=== PATIENT | male | born 1935 | race Caucasian/White ===

== ENCOUNTER 2017-01-24 09:21 | Emergency (ER) | payer OTHER, MEDICARE ==
[~2017-01-24] VITALS: Ht 175.3 cm; Wt 113.4 kg
[~2017-01-24 09:21] MED LIST: ADVAIR DISKUS 21 DSK INH; ASPIR 8181 MG PO; ATORVASTATIN CA40 MG PO; CEFTIN 250 #201 PAC PO; MUCINEX600 MG PO; PREDNISONE 10MG10 M1 PO; PRINIVIL 5MG5 MG PO; Senokot S PO; VENTOLIN H0.09 MG/Ac INH
--- NOTE | 2017-01-24 10:06 | ED GI/GU/ABDOMINAL COMPLAINT ---
History of Present Illness General Chief Complaint: General Adult Stated Complaint: LUMP ON LEFT SIDE Source: patient Exam Limitations: no limitations Vital Signs & Intake/Output Vital Signs & Intake/Output Vital Signs Date Time Temp Pulse Resp B/P B/P Pulse O2 O2 Flow FiO2 Mean Ox Delivery Rate 01/24 1036 97.0 78 16 117/79 98 Room Air 01/24 0934 97.1 83 15 121/71 95 Room Air Room Air Allergies Coded Allergies: No Known Allergies (01/24/17) Reconcile Medications Albuterol Sulfate (Proair Hfa) 90 MCG HFA.AER.AD 2 PUF INH Q4-6 PRN PRN SHORTNESS OF BREATH (Reported) Aspirin (Ecotrin*) 81 MG TABLET.DR 1 TAB PO DAILY HEART HEALTH (Reported) Atorvastatin Calcium 40 MG TABLET 1 TAB PO 1700 CHOLESTEROL (Reported) Fluticasone/Salmeterol (Advair 250-50 Diskus) 250 MCG-50 MCG/DOSE BLST.W.DEV 1 PUF INH BID BREATHING PROBLEMS (Reported) Lisinopril (Prinivil) 5 MG TABLET 1 TAB PO DAILY HTN (Reported) Losartan Potassium 50 MG TABLET 1 TAB PO DAILY HEART (Reported) Tamsulosin HCl 0.4 MG CAP.ER.24H 1 CAP PO DAILY PROSTATE (Reported) Triage Note: PT TO ED FOR SWOLLEN AREA TO L GROIN AREA FOR A WEEK. PER PT, THE LUMP BOTHERS HIM WHILE WALKING. PT BASELINE INCONTINENT, BUT REPORTS NO CHANGE IN PATTERN. Triage Nurses Notes Reviewed? yes Onset: Gradual Duration: day(s):, continues in ED Quality/Severity: fullness, fatty Radiation: no radiation Activities at Onset: none HPI: Patient presents for evaluation of a swelling over the left lower abdomen. Patient spoke with his primary care physician about it, was concerned about the possibility of hernia. The patient admits that he has troubles with constipation intermittently. Past History Travel History Traveled to [place] past 21 day No Medical History Any Pertinent Medical History? 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 No Review of Systems Review of Systems Constitutional: Reports: no symptoms. EENTM: Reports: no symptoms. Respiratory: Reports: no symptoms. Cardiovascular: Reports: no symptoms. GI: Reports: see HPI. Genitourinary: Reports: no symptoms. Musculoskeletal: Reports: no symptoms. Skin: Reports: no symptoms. Neurological/Psychological: Reports: no symptoms. Hematologic/Endocrine: Reports: no symptoms. Immunologic/Allergic: Reports: no symptoms. All Other Systems: Reviewed and Negative Physical Exam Physical Exam Gastrointestinal: normal bowel sounds (s), see below Comments: Gen.: Well-nourished, well-developed, no acute respiratory distress. Head: Normocephalic, atraumatic. Eyes: Normal inspection bilaterally Ears: Normal inspection bilaterally Nose: Normal inspection Throat/mouth : Moist mucosa Neck: Supple, full range of motion, no goiter Heart: Regular rate and rhythm, no murmurs rubs or gallops Lungs: Clear to auscultation bilaterally with normal air entry Chest: Nontender Back: Normal range of motion Abdomen: Soft, nontender, nondistended, normal bowel sounds, prominent adiposity over the left groin crease with a fullness appreciated in the suprapubic region but no overt hernia either with examination lying or standing Extremities: Normal range of motion grossly, equal radial pulses, no cyanosis clubbing or edema Neurologic: Cranial nerves grossly intact, speech is clear Skin: warm and dry Psychiatric: Calm, cooperative, no apparent delusions or hallucinations Core Measures ACS in differential dx? No Severe Sepsis Present: No Septic Shock Present: No Progress Differential Diagnosis: HERNIA,LIPOMA,FAT Plan of Care: Orders Procedure Date/time Status CT ABD & PELVIS W/O IV CONTRAS 01/24 1005 Active Diagnostic Imaging: Discussed w/RAD: CT Scan. Radiology Impression: PATIENT: DONTAE KEARNEY PRESENT AGE: 81 PATIENT ACCOUNT NO: [id number] : 37 LOCATION: [facility] ORDERING PHYSICIAN: ISAI DEE MD SERVICE DATE: 01/24/17-1005 EXAM TYPE: CAT - CT ABD & PELVIS W/O IV CONTRAS EXAMINATION: CT ABDOMEN AND PELVIS WITHOUT CONTRAST CLINICAL INFORMATION: 81-year-old male with swelling of left lower quadrant. COMPARISON: None TECHNIQUE: Multidetector volumetric imaging was performed from the superior aspect of the liver through the pubic symphysis. Sagittal and coronal reformatted images were obtained on the technologist's workstation. DLP: 1183 mGy-cm FINDINGS: LUNG BASES: No acute findings in the lung bases. Subsegmental atelectasis in the inferior lingula. Mild cylindrical bronchiectasis in medial right lower lobe and medial left lower lobe. Atherosclerotic calcification of coronary arteries. Small pericardial effusion. LIVER, GALLBLADDER, AND BILIARY TREE: Liver has normal size, contour and attenuation. The underdistended gallbladder has multiple calcified stones. No gallbladder wall edema or pericholecystic inflammatory change. PANCREAS: Multiple scattered calcifications within the pancreas compatible with sequela of remote pancreatitis. No evidence of pancreatic ductal dilatation or peripancreatic edema. SPLEEN: Unremarkable. ADRENAL GLANDS: Unremarkable. KIDNEYS AND URETERS: No nephrolithiasis or hydroureteronephrosis. Simple appearing cysts of both kidneys with cyst at the right upper pole measuring up to 4.9 cm maximum dimension and cyst of the left upper pole measuring up to 4.2 cm maximum dimension. BLADDER: Urinary bladder has diverticula along its right and left lateral garcía. No bladder calculi. GASTROINTESTINAL TRACT: Stomach is unremarkable. Loops of bowel are normal in caliber. There is a small diverticulum of the second portion of the duodenum. There is submucosal fat deposition along the colonic wall, probably related to patient's body habitus. There is no pericolonic fat stranding. Appendix is normal. No ascites or pneumoperitoneum. ABDOMINAL WALL: No abdominal wall mass or fluid collection. There is a fat-containing left inguinal hernia (images [id number], series 2). LYMPH NODES: No pathologic sized lymph nodes within the abdomen or pelvis. VASCULAR: Mild atherosclerotic calcification of the abdominal aorta and iliac arteries without aneurysm. PELVIC VISCERA: The prominent prostate gland measures up to approximately 6 cm transverse, 4.6 cm AP and 4.9 cm craniocaudal. No pelvic free fluid. OSSEOUS STRUCTURES: No aggressive lesions within the degenerated spine. At L5-S1, there is moderate loss of disc space, vacuum disc phenomenon, disc- osteophyte complex and minimal retrolisthesis of L5 on S1. IMPRESSION: 1. There is a fat-containing left inguinal hernia. 2. Cholelithiasis without cholecystitis. 3. Simple appearing bilateral renal cysts are observed on these noncontrast images, largest measuring up to 4.9 cm. 4. Prostatomegaly associated with urinary bladder diverticula (suggesting possibility of chronic partial bladder outlet obstruction by the large prostate gland). DICTATED BY: CHERY SAMPSON MD DATE/TIME DICTATED:01/24/171026 ENDOSCOPY TECHNICAN:GLENIS DATE/TIME TRANSCRIBED:01/24/171026 CONFIDENTIAL, DO NOT COPY WITHOUT APPROPRIATE AUTHORIZATION. <Electronically signed in Other Vendor System> SIGNED BY: CHERY SAMPSON MD 01/24/17 1040 Initial ED EKG: none Comments: 01/24/2017 11:25:06 AM I have updated Dontae on his test results. He will follow up with a surgeon regarding possible repair of his hernia. Departure Departure Disposition: HOME OR SELF CARE Condition: Stable Clinical Impression Primary Impression: Left inguinal hernia Referrals: MAXIMILIAN GARSIA,JORGE A Gardner (PCP/Family) Additional Instructions: Follow-up with Dr. Hudson regarding repair of your left inguinal hernia. Notify your primary care doctor of this emergency department visit and treatment plan. Return if any concerns or sudden worsening. Please note that there might be incidental findings in your evaluation that are unrelated to the current emergency department visit. Please notify your primary care doctor about this emergency department visit in order to obtain and review all of the testing performed so that these incidental findings can be monitored as needed. If you had an x-ray performed, please understand that some fractures may not be seen on the initial set of x-rays. If your symptoms persist you might need a repeat set of x-rays to check for such a fracture. If you had a laceration evaluated, please understand that foreign bodies such as glass or wood may not be visible to the naked eye or on plain x-rays. If the wound becomes red, swollen, increasingly more painful or if there is any drainage from the wound, please have it reevaluated by a physician for the possibility of a retained foreign body. Thank you for choosing the [facility] Emergency Department for your care. It was a pleasure to serve you today. Isai Dee M.D. [facility] Departure Forms: Customer Survey General Discharge Information
[2017-01-24] MEDS ORDERED: PROAIR HFA8.5 GM INH (10:25)
[2017-01-24] MEDS ORDERED: ASPIRIN EC81 M1 PO (10:26)
[2017-01-24] MEDS ORDERED: ADVAIR 250-501 EACH INH (10:27)
[2017-01-24] MEDS ORDERED: ATORVASTATIN CA40 M1 PO (10:27)
[2017-01-24] MEDS ORDERED: LOSARTAN POTASS50 M1 PO (10:27)
[2017-01-24] MEDS ORDERED: PRINIVIL5 M1 PO (10:28)
[2017-01-24] MEDS ORDERED: TAMSULOSIN HCL0.4 M1 PO (10:28)
[2017-01-24 10:36] VITALS: BP 117/79
--- NOTE | 2017-01-24 10:40 | CT SCAN REPORT ---
EXAMINATION: CT ABDOMEN AND PELVIS WITHOUT CONTRAST CLINICAL INFORMATION: 81-year-old male with swelling of left lower quadrant. COMPARISON: None TECHNIQUE: Multidetector volumetric imaging was performed from the superior aspect of the liver through the pubic symphysis. Sagittal and coronal reformatted images were obtained on the technologist's workstation. DLP: 1183 mGy-cm FINDINGS: LUNG BASES: No acute findings in the lung bases. Subsegmental atelectasis in the inferior lingula. Mild cylindrical bronchiectasis in medial right lower lobe and medial left lower lobe. Atherosclerotic calcification of coronary arteries. Small pericardial effusion. LIVER, GALLBLADDER, AND BILIARY TREE: Liver has normal size, contour and attenuation. The underdistended gallbladder has multiple calcified stones. No gallbladder wall edema or pericholecystic inflammatory change. PANCREAS: Multiple scattered calcifications within the pancreas compatible with sequela of remote pancreatitis. No evidence of pancreatic ductal dilatation or peripancreatic edema. SPLEEN: Unremarkable. ADRENAL GLANDS: Unremarkable. KIDNEYS AND URETERS: No nephrolithiasis or hydroureteronephrosis. Simple appearing cysts of both kidneys with cyst at the right upper pole measuring up to 4.9 cm maximum dimension and cyst of the left upper pole measuring up to 4.2 cm maximum dimension. BLADDER: Urinary bladder has diverticula along its right and left lateral garcía. No bladder calculi. GASTROINTESTINAL TRACT: Stomach is unremarkable. Loops of bowel are normal in caliber. There is a small diverticulum of the second portion of the duodenum. There is submucosal fat deposition along the colonic wall, probably related to patient's body habitus. There is no pericolonic fat stranding. Appendix is normal. No ascites or pneumoperitoneum. ABDOMINAL WALL: No abdominal wall mass or fluid collection. There is a fat-containing left inguinal hernia (images [id number], series 2). LYMPH NODES: No pathologic sized lymph nodes within the abdomen or pelvis. VASCULAR: Mild atherosclerotic calcification of the abdominal aorta and iliac arteries without aneurysm. PELVIC VISCERA: The prominent prostate gland measures up to approximately 6 cm transverse, 4.6 cm AP and 4.9 cm craniocaudal. No pelvic free fluid. OSSEOUS STRUCTURES: No aggressive lesions within the degenerated spine. At L5-S1, there is moderate loss of disc space, vacuum disc phenomenon, disc-osteophyte complex and minimal retrolisthesis of L5 on S1. IMPRESSION: 1. There is a fat-containing left inguinal hernia. 2. Cholelithiasis without cholecystitis. 3. Simple appearing bilateral renal cysts are observed on these noncontrast images, largest measuring up to 4.9 cm. 4. Prostatomegaly associated with urinary bladder diverticula (suggesting possibility of chronic partial bladder outlet obstruction by the large prostate gland).
== END 2017-01-24 11:35 ==
LOC: ERH 09:21
DX: K40.90 Unilateral inguinal hernia, without obstruction or gangrene, not specified as recurrent (principal)
CPT/HCPCS: 74176

== ENCOUNTER 2017-12-08 11:00 | Inpatient (IN) | payer OTHER, MEDICARE ==
[~2017-12-08] VITALS: Ht 177.8 cm; Wt 115.7 kg
[~2017-12-08 11:00] MED LIST changes: +ADVAIR 250-501 EACH INH; +ASPIRIN EC81 M1 PO; +ATORVASTATIN CA40 M1 PO; +LOSARTAN POTASS50 M1 PO; +MECLIZINE HCL12.5 M1 PO; +PROAIR HFA8.5 GM INH; +TAMSULOSIN HCL0.4 M1 PO
--- NOTE | 2017-12-08 11:39 | ED DYSPNEA/ASTHMA COMPLAINT ---
History of Present Illness General Chief Complaint: Dizziness Stated Complaint: COUGH DIZZINESS Source: patient, family, old records Exam Limitations: no limitations Vital Signs & Intake/Output Vital Signs & Intake/Output Vital Signs Date Time Temp Pulse Resp B/P B/P Pulse O2 O2 Flow FiO2 Mean Ox Delivery Rate 12/08 1256 97.8 85 20 130/70 95 12/08 1107 96.0 89 16 134/77 94 Room Air Room Air Allergies Coded Allergies: No Known Allergies (01/24/17) Reconcile Medications Albuterol Sulfate (Proair Hfa) 90 MCG HFA.AER.AD 2 PUF INH Q4-6 PRN PRN SHORTNESS OF BREATH (Reported) Aspirin (Ecotrin*) 81 MG TABLET.DR 1 TAB PO DAILY HEART HEALTH (Reported) Atorvastatin Calcium 40 MG TABLET 1 TAB PO 1700 CHOLESTEROL (Reported) Fluticasone/Salmeterol (Advair 250-50 Diskus) 250 MCG-50 MCG/DOSE BLST.W.DEV 1 PUF INH BID BREATHING PROBLEMS (Reported) Lisinopril (Prinivil) 5 MG TABLET 1 TAB PO DAILY HTN (Reported) Losartan Potassium 50 MG TABLET 1 TAB PO DAILY HEART (Reported) Meclizine HCl 12.5 MG TABLET 1 TAB PO TID PRN LIGHTHEADEDNESS Tamsulosin HCl 0.4 MG CAP.ER.24H 1 CAP PO DAILY PROSTATE (Reported) Triage Note: TRIAGE: 82 Y/O MALE PRESENTS SECONDARY TO 3 MONTHS OF CRACKELS IN THE LUNGS. REPORTS +PRODUCTIVE COUGH, "BUT I SWALLOW IT." SPO2 94% IN TRIAGE. Triage Nurses Notes Reviewed? yes HPI: Patient presents with a worsening shortness of breath, dyspnea exertion and a productive cough. Patient states symptoms are worsening over the past 3 months. Patient was seen by his primary doctor on but was told that everything was okay. Patient was seen in the emergency department on Saturday for dizziness and states that he is still occasional getting those symptoms were getting much better. Patient denies any chest pain or chest tightness. There are no fevers or chills. There is anorexia. There is no nausea or vomiting. Does have history of COPD. Past History Travel History Traveled to [place] past 21 day No Medical History Any Pertinent Medical History? 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 No Review of Systems Review of Systems Constitutional: Reports: no symptoms. EENTM: Reports: no symptoms. Respiratory: Reports: see HPI, cough, short of breath, wheezing. Cardiovascular: Reports: no symptoms. GI: Reports: see HPI (ANOREXIA). Genitourinary: Reports: no symptoms. Musculoskeletal: Reports: no symptoms. Skin: Reports: no symptoms. Neurological/Psychological: Reports: no symptoms. Hematologic/Endocrine: Reports: no symptoms. Immunologic/Allergic: Reports: no symptoms. All Other Systems: Reviewed and Negative Physical Exam Physical Exam General Appearance: well developed/nourished, alert, awake, moderate distress Head: atraumatic, normal appearance Eyes: Bilateral: PERRL, EOMI. Ears, Nose, Throat: normal pharynx, normal ENT inspection, hearing grossly normal Neck: normal inspection, supple, full range of motion, NO JVD Respiratory: rhonchi, wheezing, respiratory distress Cardiovascular: regular rate/rhythm, normal peripheral pulses Gastrointestinal: normal bowel sounds, soft, non-tender, no organomegaly Extremities: normal inspection, normal capillary refill, normal range of motion Neurologic/Psych: no motor/sensory deficits, awake, alert, oriented x 3, normal mood/affect Skin: intact, normal color, warm/dry Lymphatic: no anterior cervical rosa isela Core Measures ACS in differential dx? No CVA/TIA Diagnosis No Sepsis Present: No Sepsis Focused Exam Completed? No Progress Differential Diagnosis: asthma, bronchitis, CHF, COPD, pulmonary embolism, pneumonia Plan of Care: Orders Procedure Date/time Status Heart Healthy Diet 12/08 D Active LACTIC ACID 12/08 1438 Active Patient Data 12/08 1315 Active ED Holding Orders 12/08 1311 Active Admit to inpatient 12/08 1311 Active Vital Signs 12/08 1311 Active Code Status 12/08 1311 Active BLOOD CULTURE 12/08 1138 Active TROPONIN LEVEL 12/08 1138 Complete LACTIC ACID 12/08 1137 Complete COMPREHENSIVE METABOLIC PANEL 12/08 1137 Complete CBC WITHOUT DIFFERENTIAL 12/08 1137 Complete EKG 12/08 1137 Active Current Medications Sig/Raulito Start time Last Medication Dose Stop Time Status Admin Azithromycin 500 MG ONCE ONE 12/08 1314 UNVr (Zithromax) 12/08 1414 Dextrose/Water 250 ML (D5W) Ceftriaxone Sodium 1,000 MG ONCE ONE 12/08 1314 UNVr (Rocephin) 12/08 131 Methylprednisolone 125 MG ONCE ONE 12/08 1314 UNVr (Solu Medrol) 12/08 131 Laboratory Tests 12/08/17 1200: Anion Gap 13, Estimated GFR > 60, BUN/Creatinine Ratio 21.4, Glucose 93, Lactic Acid 1.5, Calcium 9.1, Total Bilirubin 0.6, AST 24, ALT 43, Alkaline Phosphatase 68, Troponin I < 0.01, Total Protein 6.6, Albumin 3.6, Globulin 3.0, Albumin/ Globulin Ratio 1.2, CBC w Diff NO MAN DIFF REQ, RBC 4.41 L, MCV 92.9, MCH 30.5, MCHC 32.9 L, RDW 14.3, MPV 6.5 L, Gran % 69.0, Lymphocytes % 28.1, Monocytes % 1.7, Eosinophils % 0.7, Basophils % 0.5, Absolute Granulocytes 9.3 H, Absolute Lymphocytes 3.8 H, Absolute Monocytes 0.2, Absolute Eosinophils 0.1, Absolute Basophils 0.1 Microbiology 12/08 1254 BLOOD: Blood Culture - RECD 12/09 1199 BLOOD: Blood Culture - RECD Diagnostic Imaging: Viewed by Me: Radiology Read. Discussed w/RAD: Radiology Read. CXR Impression: PATIENT: SHARLENE KEARNEY PRESENT AGE: 82 PATIENT ACCOUNT NO: [id number] : 37 LOCATION: [facility] ORDERING PHYSICIAN: Christopher Ac MD SERVICE DATE: 12/08/17 EXAM TYPE: RAD - XRY-CHEST XRAY, TWO VIEWS EXAMINATION: XR CHEST CLINICAL INFORMATION: Cough wheezing. COMPARISON: Prior chest November 2015. TECHNIQUE: 2 views of the chest were obtained. FINDINGS: Lungs clear. The cardiac silhouette mediastinum pulmonary normal. Bone and soft tissues: Unremarkable. IMPRESSION: No acute disease DICTATED BY: Javid Beach MD DATE/TIME DICTATED:12/08/171251 STOREKEEPER STEWARD:GLENIS DATE/TIME TRANSCRIBED:12/08/171251 CONFIDENTIAL, DO NOT COPY WITHOUT APPROPRIATE AUTHORIZATION. <Electronically signed in Other Vendor System> SIGNED BY: Javid Beach MD 12/08/17 1257 Initial ED EKG: NSR, nonspecific ST T wave chg Prior EKG: unchanged Comments: Patient has been on antibiotics and steroids for his COPD however his symptoms are worsening. Departure Departure Disposition: STILL A PATIENT Condition: Guarded Clinical Impression Primary Impression: COPD exacerbation Referrals: Lianet GARSIA,Michel Gardner (PCP/Family) Departure Forms: Customer Survey General Discharge Information Admission Note Spoke With: Nate GARSIA,M[place]el Documentation of Exam: Documentation of any treatments & extenuating circumstances including Concerns Regarding Discharge (functional status, medication knowledge or non-compliance, living conditions, etc.) that warrant an admission rather than observation: [ Patient to be admitted for COPD exacerbation failed outpatient steroids and antibiotics. Patient will need pulmonary consultation, IV antibiotics and IV steroids, nebulizers] Critical Care Note Critical Care Note Critical Care Time: non-applicable
[2017-12-08 12:16] LABS: ABSOLUTE BASOPHIL COUNT 0.1 /CUMM (0.0-0.2); ABSOLUTE EOSINOPHIL COUNT 0.1 /CUMM (0.0-0.7); ABSOLUTE GRANULOCYTE CT 9.3 /CUMM (1.4-6.5); ABSOLUTE LYMPH COUNT 3.8 /CUMM (1.2-3.4); ABSOLUTE MONOCYTE COUNT 0.2 /CUMM (0.10-0.60); BASOPHIL % 0.5 % (0.0-2.0); EOSINOPHIL % 0.7 % (0-5); HEMATOCRIT 40.9 % (42-52); MEAN CORPUSCULAR HGB 30.5 PG (27.0-31.0); MEAN CORPUSCULAR HGB CONC 32.9 G/DL (33.0-37.0); MEAN CORPUSCULAR VOLUME 92.9 FL (80.0-94.0); MEAN PLATELET VOLUME 6.5 FL (7.4-10.4); PLATELET COUNT 263 /CUMM (130-400); RBC DISTRIBUTION WIDTH 14.3 % (11.5-14.5); RED BLOOD CELL CT 4.41 /CUMM (4.70-6.10); WHITE BLOOD CELL COUNT 13.4 /CUMM (4.8-10.8)
--- NOTE | 2017-12-08 12:57 | RADIOLOGY REPORT ---
EXAMINATION: XR CHEST CLINICAL INFORMATION: Cough wheezing. COMPARISON: Prior chest November 2015. TECHNIQUE: 2 views of the chest were obtained. FINDINGS: Lungs clear. The cardiac silhouette mediastinum pulmonary normal. Bone and soft tissues: Unremarkable. IMPRESSION: No acute disease
--- NOTE | 2017-12-08 13:23 | History & Physical ---
Masoud GARSIA,[facility] 12/08/17 1322: General Information and HPI History of Present Illness: Mr. Lopez is an 82-year-old male with past medical history of cerebrovascular accident 5 years ago now with right lower extremity weakness, hypertension, hyperlipidemia, urinary incontinence, and HFpEF who presents with complaints of crackles when breathing. The patient has noticed for the past 3 months that he has had increased crackles and productive cough. He was diagnosed with bronchitis by his primary care doctor and prescribed prednisone. However, his symptoms have persisted. Patient notes that he has had these symptoms in past years that lasted several months. Additionally, he has been complaining of dizziness that comes and goes, worse in the morning, and relieved with meclizine. He is additionally reporting daytime sleepiness and frequent urination. He has never had a sleep study. He denies any chest pain, orthopnea, shortness of breath, palpitations, fever, chills, night sweats, vision changes, nausea, vomiting, diarrhea, dysuria, or numbness/tingling. The patient uses a walker but is not able to walk well at baseline. He is a nonsmoker, denies recreational drug use, and does not use alcohol. He lives at home with his . Allergies/Medications Allergies: Coded Allergies: No Known Allergies (01/24/17) Home Med list Albuterol Sulfate (Proair Hfa) 90 MCG HFA.AER.AD 2 PUF INH Q4-6 PRN PRN SHORTNESS OF BREATH (Reported) Aspirin (Ecotrin*) 81 MG TABLET.DR 1 TAB PO DAILY HEART HEALTH (Reported) Atorvastatin Calcium 40 MG TABLET 1 TAB PO 1700 CHOLESTEROL (Reported) Fluticasone/Salmeterol (Advair 250-50 Diskus) 250 MCG-50 MCG/DOSE BLST.W.DEV 1 PUF INH BID BREATHING PROBLEMS (Reported) Lisinopril (Prinivil) 5 MG TABLET 1 TAB PO DAILY HTN (Reported) Losartan Potassium 50 MG TABLET 1 TAB PO DAILY HEART (Reported) Meclizine HCl 12.5 MG TABLET 1 TAB PO TID PRN LIGHTHEADEDNESS Tamsulosin HCl 0.4 MG CAP.ER.24H 1 CAP PO DAILY PROSTATE (Reported) Past History Travel History Traveled to [place] past 21 day No Medical History Neurological: CVA EENT: NONE Cardiovascular: hypertension, hyperlipidemia Respiratory: NONE Gastrointestinal: NONE Hepatic: NONE Renal: urinary incontinence Musculoskeletal: NONE Psychiatric: NONE Endocrine: NONE Blood Disorders: NONE Cancer(s): NONE 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 EENTM: Reports: no symptoms. Cardiovascular: Reports: no symptoms. Respiratory: Reports: see HPI. GI: Reports: no symptoms. Genitourinary: Reports: no symptoms. Musculoskeletal: Reports: no symptoms. Skin: Reports: no symptoms. Neurological/Psychological: Reports: no symptoms. Hematologic/Endocrine: Reports: no symptoms. Immunologic/Allergic: Reports: no symptoms. All Other Systems: Reviewed and Negative Exam & Diagnostic Data Last 24 Hrs of Vital Signs/I&O Vital Signs Date Time Temp Pulse Resp B/P B/P Pulse O2 O2 Flow FiO2 Mean Ox Delivery Rate 12/08 1256 97.8 85 20 130/70 95 12/08 1107 96.0 89 16 134/77 94 Room Air Room Air Intake & Output 12/08 1600 12/08 0800 12/08 0000 Intake Total 350 Output Total Balance 350 Intake, IV 350 Patient 113.398 kg Weight Weight Reported by Patient Measurement Method Physical Exam General Appearance Alert, Oriented X3, Cooperative, No Acute Distress Skin No Rashes, No Breakdown, No Significant Lesion HEENT Atraumatic, PERRLA, EOMI, Mucous Membr. moist/pink Cardiovascular Regular Rate, Normal S1, Normal S2 Lungs severe diffuse crackles and rhonci Abdomen Normal Bowel Sounds, Soft, No Tenderness, obese Neurological Normal Speech, Normal Tone, Sensation Intact, Cranial Nerves 3-12 NL, strength 5/5 in all extrermities except RLE Extremities No Edema, Normal Pulses, No Tenderness/Swelling, compression stockings on Last 24 Hrs of Labs/Chau: Laboratory Tests 12/08/17 1200: Anion Gap 13, Estimated GFR > 60, BUN/Creatinine Ratio 21.4, Glucose 93, Lactic Acid 1.5, Calcium 9.1, Total Bilirubin 0.6, AST 24, ALT 43, Alkaline Phosphatase 68, Troponin I < 0.01, Total Protein 6.6, Albumin 3.6, Globulin 3.0, Albumin/ Globulin Ratio 1.2, CBC w Diff NO MAN DIFF REQ, RBC 4.41 L, MCV 92.9, MCH 30.5, MCHC 32.9 L, RDW 14.3, MPV 6.5 L, Gran % 69.0, Lymphocytes % 28.1, Monocytes % 1.7, Eosinophils % 0.7, Basophils % 0.5, Absolute Granulocytes 9.3 H, Absolute Lymphocytes 3.8 H, Absolute Monocytes 0.2, Absolute Eosinophils 0.1, Absolute Basophils 0.1 Microbiology 12/08 1350 NASOPHARYN: Influenza Virus A & B Rapid Smear - RECD 12/08 1338 LOWER RESP: Respiratory Culture - ORD 12/08 1338 LOWER RESP: Gram Stain - ORD 12/08 1255 BLOOD: Blood Culture - RECD 12/08 1200 BLOOD: Blood Culture - RECD Assessment/Plan Assessment: Mr. Lopez is an 82-year-old male with past medical history of cerebrovascular accident 5 years ago now with right lower extremity weakness, hypertension, hyperlipidemia, urinary incontinence, and HFpEF who presents with complaints of crackles when breathing. On presentation, vital signs were T 96.0, HR 89, RR 16, BP 134/77, saturating 94 % on room air. Laboratories were significant for white blood cell count 13.4, hemoglobin 13.4, sodium 146, chloride 108, lactic acid 1.5, negative LFTs, troponin less than 0.01. Chest x-ray showed no acute disease. He received methylprednisone, ceftriaxone, and azithromycin in the emergency room. He will be admitted to general medicine and treated for following problems: 1. Chronic bronchitis 2. Normocytic anemia 3. Mild hypernatremia #Chronic bronchitis: Patient presents with complaints of 3 months of productive cough without shortness of breath. He has had episodes in the past it seems. He is a never smoker. There does not seem to be any acute pneumonia and the chest x -ray is clear. He does have a mild leukocytosis. Influenza swab negative. -IV methylprednisone 40 mg every 12 -Azithromycin -Guaifenesin -TRC nebs -Incentive spirometry -Follow cultures #Normocytic anemia: Patient has a mild anemia no signs of bleeding. Likely anemia of chronic disease. -Iron studies #Mild hypernatremia: Patient is mildly dehydrated. -Continue to monitor #Chronic medical problems: -Continue home medications DVT prophylaxis with enoxaparin Heart healthy diet Full code As Ranked By This Provider Problem List: 1. Chronic bronchitis Core Measures/Misc (05/19) Acute Coronary Syndrome ACS Diagnosis: No Congestive Heart Failure Congestive Heart Failure Diagnosis No Cerebrovascular Accident CVA/TIA Diagnosis: No VTE (View Protocol) VTE Risk Factors Age>40 No Mechanical VTE Prophylaxis d/t N/A MechProphylax Ordered No VTE Pharm Prophylaxis d/t NA PharmProphylax ordered Sepsis (View protocol) Sepsis Present: No Magali Lisa MD 12/08/17 1427: Resident Review Statement Resident Statement: examined this patient, discussed with internet ecommerce specialist, agreed with internet ecommerce specialist Other Findings: The patient is an 82-year-old man with a past medical history of cerebrovascular accident 5 years ago now with residual right lower leg weakness, hypertension, hyperlipidemia, urinary incontinence, and HFpEF who presents with complaints of crackles when breathing. The patient has noticed for the past 3 months that he has had increased crackles and productive cough. His does admit to patient having increased coughing after he eats or drinks. Of note, patient has had chronic aspiration in the past with suctioning of large abount of material from pharnyx in the past as per patient's . He denies fevers or chills or malaise. Examination in the ER General; Alert, oriented X 3. Chest exam with scattered bronchial breath sounds and coarse crepitations. Abdominal exam: Nontender with normal bowel sounds. Extremities: +1 Mild bilateral pitting pedal edema. Labs significant for leukocytosis WBC 13.4, and mild hypernatremia Na 146. PROBLEM LIST 1. Chronic bronchitis with suspected chronic aspiration 2. Normocytic anemia 3. Mild hypernatremia 1. Chronic bronchitis with suspected chronic aspiration: Patient presents with complaints of 3 months of productive cough. He has has episodes in the past it seems. He is a never smoker. There does not seem to be any acute pneumonia and the chest x-ray is clear. He does have a mild leukocytosis. Influenza swab negative. Of note, patient has had chronic aspiration in the past with suctioning of large abount of material from pharnyx in the past as per patient's . -Follow up blood cultures, sputum cultures -Start IV methylprednisone 40 mg every 12 hours -IV Azithromycin 500 mg Q 12 hours -Swallow evaluation and possible [facility] for nebulizer therapy -Consider pulmonology consult in the AM -Incentive spirometry 2. Normocytic anemia: Patient has a mild anemia no signs of bleeding. Likely anemia of chronic disease. -Iron studies 3. Mild hypernatremia: Patient is mildly dehydrated. -Continue to monitor 4. Chronic medical problems: -Continue home medications DVT prophylaxis with enoxaparin Heart healthy diet Patient is Full code Nate GARSIA,[facility] 12/08/172033: Attending MD Review Statement Attending Statement Attending MD Statement: examined this patient, discuss w/resident/PA/PARK WARDEN, agreed w/resident/PA/PARK WARDEN, reviewed EMR data (avail) Attending Assessment/Plan: Patient seen and examined. Plan of care discussed with the medical team and the patient. Available lab work and radiology test reports were reviewed. Patient is 82-year-old male with history of for CVA about 5 years ago with chronic right proximity weaknesses to hypertension hyperlipidemia. His prior echo was in 2015 showed more than 65% ejection fraction. Patient presents with vague symptoms of for 2-3 months of for wheezing and crackles and raspy sounds in his throat he did he had tried the prednisone antibiotic the given by his PCP without any relief. On exam he was afebrile with stable vital signs. His roommate saturation was 93%. She did not appear to be in respiratory distress but he had audible wheeze. Chest exam shows scattered bilateral crackles and wheezing. No edema is noted no JVD is noted. His chest x-ray did not show any acute process. Note that his prior CT chest in 2015 did not reveal any lung issues. Patient is a nonsmoker. His WBC count was elevated to 13.4 without any left shift. Assessment and plan * Suspected acute and chronic bronchitis, no evidence of pneumonia * Hyponatremia * Elevated WBC count * History of CVA with residual left leg weakness Plan Admit to general medicine Check BNP Okay with a trial of Solu-Medrol and azithromycin Patient may need a repeat CT chest especially's BNP is normal Pulmonary consult the may be useful
--- NOTE | 2017-12-08 13:58 | PN- Student ---
Subjective Subjective: Mr. Lopez is an 82 year old male with a PMHx sig for HTN, Hyperlipidemia, CVA, BPH, and COPD who presents today to the ED with a complaint of crackles while breathing [id number]. He was previously seen by his PMD for his crackles and was treated with a Prednisone 40 mg taper and Azithromycin 500 mg x 1 day and 250 mg x 4 days starting 12/03/17. He also reports dizziness upon getting out of bed in the am, for which he was seen in the ED and has been taking Meclizine 12.5 mg PO TID PRN, which relieves his symptoms. He denies any orthopnea, chest pain, palpatations, hemoptysis, fever, chills, rashes, n/v or abdominal pain. He has not had a change in his appetite. He reports polyuria, urinary incontinence and nocturia 3x a night which has been going on for years as a result of BPH. He adds that he typically has 1 BM a week and uses a laxative at home. He has not had any changes in urinary or bowel habbits, nor any hematuria, hematochiza, diarrhea or dark stools. He does report some sputum production which he swallows. PMHx:HTN, Hyperlipidemia, BPH, CVA 5 years ago Surgical Hx: hernia operation 20 years ago, cataracts, jaw dislocation reduction 1 year ago Social: Denies ETOH, smoking history or any other drug use. for 50 years and lives with his who makes his medical decisions and monitors his medication. He uses a walker at home for assistance as he reports weakness in his right lower extremity as a result of the CVA 5 years ago. Allergies: NKDA Medications: Confirmed via phone with [facility] on [address] Fluticasone/salmeterol 250-50 mcg INH Losartan 50 mg PO QD Tamsulosin 0.4 mg PO QD Oxybutinin 5 mg PO BID Losartan 40 mg PO QD 11/28/17- Meclizine 12.5 mg TID PRN 12/03/17- Prednisone 40 mg taper (20 mg tabs BID for 5 days, 20 mg tab QD for 5 days) 12/03/17- Azithromycin 500 PO mg x 1 day, 250 mg PO x 4 days Objective Objective: Laboratory Tests 12/08 12/08 1438 1200 Chemistry Sodium (137 - 145 mmol/L) 146 H Potassium (3.5 - 5.1 mmol/L) 3.6 Chloride (98 - 107 mmol/L) 108 H Carbon Dioxide (22 - 30 mmol/L) 25 Anion Gap (5 - 16) 13 BUN (9 - 20 mg/dL) 15 Creatinine (0.7 - 1.2 mg/dL) 0.7 Estimated GFR (>60 ml/min) > 60 BUN/Creatinine Ratio (7 - 25 %) 21.4 Glucose (65 - 99 mg/dL) 93 Lactic Acid (0.7 - 2.1 mmol/L) Cancelled 1.5 Calcium (8.4 - 10.2 mg/dL) 9.1 Iron (49 - 181 ug/dL) 46 L TIBC (261 - 462 ug/dL) 277 Ferritin (17.9 - 464 ng/mL) 85.0 Total Bilirubin (0.2 - 1.3 mg/dL) 0.6 AST (17 - 59 U/L) 24 ALT (21 - 72 U/L) 43 Alkaline Phosphatase (< 127 U/L) 68 Troponin I (<0.11 ng/ml) < 0.01 Total Protein (6.3 - 8.2 g/dL) 6.6 Albumin (3.5 - 5.0 g/dL) 3.6 Globulin (1.9 - 4.2 gm/dL) 3.0 Albumin/Globulin Ratio (1.1 - 2.2 %) 1.2 Hematology CBC w Diff NO MAN DIFF REQ WBC (4.8 - 10.8 /CUMM) 13.4 H RBC (4.70 - 6.10 /CUMM) 4.41 L Hgb (14.0 - 18.0 G/DL) 13.4 L Hct (42 - 52 %) 40.9 L MCV (80.0 - 94.0 FL) 92.9 MCH (27.0 - 31.0 PG) 30.5 MCHC (33.0 - 37.0 G/DL) 32.9 L RDW (11.5 - 14.5 %) 14.3 Plt Count (130 - 400 /CUMM) 263 MPV (7.4 - 10.4 FL) 6.5 L Gran % (42.2 - 75.2 %) 69.0 Lymphocytes % (20.5 - 51.1 %) 28.1 Monocytes % (1.7 - 9.3 %) 1.7 Eosinophils % (0 - 5 %) 0.7 Basophils % (0.0 - 2.0 %) 0.5 Absolute Granulocytes (1.4 - 6.5 /CUMM) 9.3 H Absolute Lymphocytes (1.2 - 3.4 /CUMM) 3.8 H Absolute Monocytes (0.10 - 0.60 /CUMM) 0.2 Absolute Eosinophils (0.0 - 0.7 /CUMM) 0.1 Absolute Basophils (0.0 - 0.2 /CUMM) 0.1 Microbiology Date/Time Procedure - Status Source Growth 12/08 1350 Influenza Virus A & B Rapid Smear - COMP NASOPHARYN 12/08 1338 Respiratory Culture - ORD LOWER RESP 12/08 1338 Gram Stain - ORD LOWER RESP 12/08 1255 Blood Culture - RECD BLOOD 12/08 1200 Blood Culture - RECD BLOOD Vital Signs Date Time Temp Pulse Resp B/P B/P Pulse O2 O2 Flow FiO2 Mean Ox Delivery Rate 12/08 1602 97.9 84 20 140/80 93 Room Air 12/08 1539 97.9 83 22 142/76 93 Room Air 12/08 1402 94 12/08 1256 97.8 85 20 130/70 95 12/08 1107 96.0 89 16 134/77 94 Room Air Room Air Intake & Output 12/08 1600 12/08 0800 12/08 0000 Intake Total 850 Output Total Balance 850 Intake, IV 350 Intake, Oral 500 Patient 250 lb Weight Weight Reported by Patient Measurement Method PE: Gen pino-no acute distress, alert, cooperative, reliable CV-Regular rate, normal S1 & S2, No M/R/G Pulm-loud crackles and ronchi heard throughout Abd-normal bowel sounds, nontender Neuro- nystagmus upon consentual right du gaze, 4/5 strength right leg raise, 5/5 strength in upper extremities and left leg. Assessment/Plan Assessment: Mr. Lopez is an 82 year old male with a pmhx of HTN, hyperlipidemia, COPD, CVA, and BPH that presents with worsening crackles x 3 months. He does not have a fever or chills, chest pain or tightness, or any other complaints. He reports a productive cough, however he swallows and sputum production and cannot identify the color or consistency of his mucus. He uses a walker at home as he has residual weakness of his right leg as a result of a CVA 5 years ago. He reports feeling dizzy and lightheaded upon getting out of bed in the morning which is responsive to meclizine. His was present during the interview and reports that he does doze off throughout the day and snores at night, even prior to these events. He has never had a sleep study done in the past. Plan: Problem list: 1. Chronic Bronchitis exacerbation 2. Anemia 3. Sleep apnea 4. ongoing medical problems #chronic bronchitis exacerbation: Patient reports 3 months of crackles when breathing and a productive cough with unidentified character due to swallowing any sputum production. He was seen by his PMD and treated with oral Azithromycin and Prednisone, for which has been ongoing x5 days. He also is reporting some dizziness which is likely a result of his current condition. A chest x-ray was done in the ED and did not show signs of any glaring consolidation or effusion. It is likely this is viral in nature. However he does have a slightly elevated WBC count. -Azithromycin IV -IV steroids -Nebulizer treatment -ABG if patient O2 sats drop -Meclizine for continued dizziness #Anemia: Patient has decreased RBCs upon CBC, with normal mcv indicating normocytic anemia. Iron studies indicate low iron count. 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 -Iron supplementation -FOBT #Sleep apnea: as per reports from patient's , he is likely suffering from sleep apnea and may benefit from CPAP. As patient is overweight it is likely he has some obstruction to normal air flow. -Sleep study -CPAP therapy #ongoing medical problems: -continue home medicaitons DVTppx: Enoxaparin Diet: heart healthy code status: full code
[2017-12-08 16:02] VITALS: BP 140/80
--- NOTE | 2017-12-08 20:34 | Admission Certification ---
Admission Certification Certification Statement - As attending physician, I certify that at the time of - admission, based on clinical presentation, severity of - symptoms, need for further diagnostic testing and - therapeutic interventions, and risk of adverse outcomes - without in-hospital treatment, in my clinical assessment, - this patient requires an acute hospital stay for a minimum - of two nights or longer. I have also considered psychsocial - factors such as support system, advanced age, financial - issues, cognitive issues, and failed out-patient treatments, - past re-admission history, safety of patient, and lack of - compliance as applicable. Specific rationale supporting this admission is: Difficulty breathing and wheezing
[2017-12-08 22:26] VITALS: BP 138/80
[2017-12-09 05:46] VITALS: BP 136/80
--- NOTE | 2017-12-09 07:39 | PN- Housestaff ---
See Addendum Subjective Follow-up For: chronic bronchitis Subjective: No overnight events. Patient slept for 4 hours. He says his crackles have improved and he continues to not have shortness of breath, chest pain, dull pain , or other issues. Review of Systems Constitutional: Reports: no symptoms. EENTM: Reports: no symptoms. Cardiovascular: Reports: no symptoms. Respiratory: Reports: see HPI. Gastrointestinal: Reports: no symptoms. Genitourinary: Reports: no symptoms. Musculoskeletal: Reports: no symptoms. Skin: Reports: no symptoms. Neurological/Psychological: Reports: no symptoms. Hematologic/Endocrine: Reports: no symptoms. Immunologic/Allergic: Reports: no symptoms. Objective Last 24 Hrs of Vital Signs/I&O Vital Signs Date Time Temp Pulse Resp B/P B/P Pulse O2 O2 Flow FiO2 Mean Ox Delivery Rate 12/09 0546 98.0 72 20 136/80 92 Room Air 12/09 0000 Room Air 12/08 2226 98.3 84 20 138/80 92 Room Air 12/08 1602 97.9 84 20 140/80 93 Room Air 12/08 1539 97.9 83 22 142/76 93 Room Air 12/08 1402 94 12/08 1256 97.8 85 20 130/70 95 12/08 1107 96.0 89 16 134/77 94 Room Air Room Air Intake & Output 12/09 0800 12/09 0000 12/08 1600 Intake Total 480 850 Output Total Balance 480 850 Intake, IV 350 Intake, Oral 480 500 Patient 115.666 kg 113.398 kg Weight Weight Bed scale Reported by Patient Measurement Method Physical Exam General Appearance: Alert, Oriented X3, Cooperative, No Acute Distress Cardiovascular: Regular Rate, Normal S1, Normal S2 Lungs: moderate crackles and wheezing bilaterally, improved from yesterday Abdomen: Normal Bowel Sounds, Soft, No Tenderness Extremities: No Edema, Normal Pulses, No Tenderness/Swelling Current Medications: Current Medications Sig/Raulito Start time Last Medication Dose Route Stop Time Status Admin Acetaminophen 650 MG Q6P PRN 12/08 1530 AC PO Albuterol Sulfate 3 ML ONCE ONE 12/08 1145 DC 12/08 INH 12/08 1146 1146 Aspirin Buffered 81 MG DAILY 12/09 1000 AC PO Atorvastatin Calcium 40 MG 1700 12/08 1700 AC 12/08 PO 1730 Azithromycin 500 MG DAILY@1300 12/09 1300 AC Dextrose/Water 250 ML IV Azithromycin 500 MG ONCE ONE 12/08 1315 DC 12/08 Dextrose/Water 250 ML IV 12/08 1414 1348 Budesonide/ 2 PUF BID 12/08 2200 AC 12/08 Formoterol Fumarate INH 2139 Ceftriaxone Sodium 0 .STK-MED ONE 12/08 1323 DC .ROUTE Ceftriaxone Sodium 1,000 MG ONCE ONE 12/08 1315 DC 12/08 IV 12/08 1316 1331 Enoxaparin Sodium 40 MG DAILY 12/08 1529 AC 12/08 SC 1731 Ferrous Sulfate 325 MG DAILY 12/09 1000 AC PO Guaifenesin 600 MG Q12 12/08 1357 AC 12/08 PO 2138 Ipratropium Glenn 2.5 ML ONCE ONE 12/08 1145 DC 12/08 INH 12/08 1146 1146 Losartan Potassium 50 MG DAILY 12/09 1000 AC PO Meclizine HCl 12.5 MG TID PRN 12/08 1530 AC PO Melatonin 5 MG ONCE ONE 12/09 0130 DC 12/09 PO 12/09 0131 0126 Methylprednisolone 40 MG Q12 12/09 1000 AC IV Methylprednisolone 0 .STK-MED ONE 12/08 1323 DC .ROUTE Methylprednisolone 125 MG ONCE ONE 12/08 1315 DC 12/08 IV 12/08 1316 1331 Tamsulosin HCl 0.4 MG DAILY 12/09 1000 AC PO Last 24 Hrs of Lab/Chau Results Last 24 Hrs of Labs/Mics: Laboratory Tests 12/09/17 0640: Sodium Pending, Potassium Pending, Chloride Pending, Carbon Dioxide Pending, Anion Gap Pending, BUN Pending, Creatinine Pending, BUN/Creatinine Ratio Pending , Ldf-Y-Wicvnqgekxo Pept Pending, CBC w Diff Pending, WBC Pending, RBC Pending, Hgb Pending, Hct Pending, MCV Pending, MCH Pending, MCHC Pending, RDW Pending, Plt Count Pending, MPV Pending 12/08/17 1438: Lactic Acid Cancelled 12/08/17 1200: Anion Gap 13, Estimated GFR > 60, BUN/Creatinine Ratio 21.4, Glucose 93, Lactic Acid 1.5, Calcium 9.1, Iron 46 L, TIBC 277, Ferritin 85.0, Total Bilirubin 0.6, AST 24, ALT 43, Alkaline Phosphatase 68, Troponin I < 0.01, Total Protein 6.6, Albumin 3.6, Globulin 3.0, Albumin/Globulin Ratio 1.2, CBC w Diff NO MAN DIFF REQ, RBC 4.41 L, MCV 92.9, MCH 30.5, MCHC 32.9 L, RDW 14.3, MPV 6.5 L, Gran % 69.0, Lymphocytes % 28.1, Monocytes % 1.7, Eosinophils % 0.7, Basophils % 0.5, Absolute Granulocytes 9.3 H, Absolute Lymphocytes 3.8 H, Absolute Monocytes 0.2, Absolute Eosinophils 0.1, Absolute Basophils 0.1 Microbiology 12/08 1350 NASOPHARYN: Influenza Virus A & B Rapid Smear - COMP 12/08 1338 LOWER RESP: Respiratory Culture - COLB 12/08 1338 LOWER RESP: Gram Stain - COLB 12/08 1255 BLOOD: Blood Culture - RECD 12/08 1200 BLOOD: Blood Culture - RECD Assessment/Plan Assessment: Mr. Lopez is an 82-year-old male with past medical history of cerebrovascular accident 5 years ago now with right lower extremity weakness, hypertension, hyperlipidemia, urinary incontinence, and HFpEF who presents with complaints of crackles when breathing. Problem list: 1. Chronic bronchitis 2. Normocytic anemia 3. Mild hypernatremia #Chronic bronchitis: Patient presented with complaints of 3 months of productive cough. He has had episodes in the past it seems. He is a never smoker. There does not seem to be any acute pneumonia and the chest x-ray is clear. Influenza swab negative. Overnight, his crackles have improved but are still there. -IV methylprednisone 40 mg every 12 -Azithromycin -Guaifenesin -TRC nebs -Incentive spirometry -Follow cultures -Pulmonology consult -CT chest #Normocytic anemia: Patient has a mild anemia no signs of bleeding. Iron studies showed low iron. -Ferrous sulfate supplementation #Mild hypernatremia: Mild. -Continue to monitor #Chronic medical problems: -Continue home medications DVT prophylaxis with enoxaparin Heart healthy diet Full code Problem List: 1. Chronic bronchitis Pain Ratin Pain Location: no Pain Goal: Remain pain free Pain Plan: see a/p Tomorrow's Labs & Rationales: no
[2017-12-09 08:57] LABS: ABSOLUTE BASOPHIL COUNT 0 /CUMM (0.0-0.2); ABSOLUTE EOSINOPHIL COUNT 0 /CUMM (0.0-0.7); ABSOLUTE GRANULOCYTE CT 11.1 /CUMM (1.4-6.5); ABSOLUTE LYMPH COUNT 1.9 /CUMM (1.2-3.4); ABSOLUTE MONOCYTE COUNT 0.8 /CUMM (0.10-0.60); BASOPHIL % 0.1 % (0.0-2.0); EOSINOPHIL % 0 % (0-5); GRANULOCYTE % 80.2 % (42.2-75.2); HEMATOCRIT 38.6 % (42-52); MEAN CORPUSCULAR HGB 30.9 PG (27.0-31.0); MEAN CORPUSCULAR HGB CONC 33.5 G/DL (33.0-37.0); MEAN CORPUSCULAR VOLUME 92.1 FL (80.0-94.0); PLATELET COUNT 271 /CUMM (130-400); RBC DISTRIBUTION WIDTH 14.3 % (11.5-14.5); WHITE BLOOD CELL COUNT 13.8 /CUMM (4.8-10.8)
--- NOTE | 2017-12-09 09:04 | Cons- Pulmonary ---
General Information and HPI Consulting Request Date of Consult: 12/09/17 Requested By: Kaye Reason for Consult: Bronchospasm History of Present Illness: Patient is an 82-year-old status post CVA nonsmoker admitted for abnormal sounds heard while breathing. He is describe crackles audible while he is breathing. He denies shortness of breath he has scant coughchest pain or hemoptysis. He does have occasional coughing while swallowing food and liquids. He has history of snoring and fragmented sleep as well as daytime somnolence. 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 Chest x-ray is now normal. He is now required supplemental oxygen Allergies/Medications Allergies: Coded Allergies: No Known Allergies (01/24/17) Home Med List: Albuterol Sulfate (Proair Hfa) 90 MCG HFA.AER.AD 2 PUF INH Q4-6 PRN PRN SHORTNESS OF BREATH (Reported) Aspirin (Ecotrin*) 81 MG TABLET.DR 1 TAB PO DAILY HEART HEALTH (Reported) Atorvastatin Calcium 40 MG TABLET 1 TAB PO 1700 CHOLESTEROL (Reported) Fluticasone/Salmeterol (Advair 250-50 Diskus) 250 MCG-50 MCG/DOSE BLST.W.DEV 1 PUF INH BID BREATHING PROBLEMS (Reported) Lisinopril (Prinivil) 5 MG TABLET 1 TAB PO DAILY HTN (Reported) Losartan Potassium 50 MG TABLET 1 TAB PO DAILY HEART (Reported) Meclizine HCl 12.5 MG TABLET 1 TAB PO TID PRN LIGHTHEADEDNESS Tamsulosin HCl 0.4 MG CAP.ER.24H 1 CAP PO DAILY PROSTATE (Reported) Review of Systems Review of Systems Constitutional: Denies: chills, fever. Cardiovascular: Denies: chest pain, edema, orthopena. Respiratory: Reports: cough, wheezing. Denies: hemoptysis, short of breath, sputum production. GI: Denies: abdominal pain, diarrhea, melena. 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 Home Services at Home: None Smoking Status: Never Smoked ETOH Use: denies use Illicit Drug Use: denies illicit drug use Exam & Diagnostic Data Last 24 Hrs of Vital Signs/I&O Vital Signs Date Time Temp Pulse Resp B/P B/P Pulse O2 O2 Flow FiO2 Mean Ox Delivery Rate 12/09 0805 136/80 12/09 0805 136/80 12/09 0546 98.0 72 20 136/80 92 Room Air 12/09 0000 Room Air 12/08 2226 98.3 84 20 138/80 92 Room Air 12/08 1602 97.9 84 20 140/80 93 Room Air 12/08 1539 97.9 83 22 142/76 93 Room Air 12/08 1402 94 12/08 1256 97.8 85 20 130/70 95 12/08 1107 96.0 89 16 134/77 94 Room Air Room Air Intake & Output 12/09 1600 12/09 0800 12/09 0000 Intake Total 360 480 Output Total Balance 360 480 Intake, Oral 360 480 Patient 255 lb 255 lb Weight Weight Bed scale Measurement Method Oxygen saturation room air 92% HNT exam shows no adenopathy or jugular venous distention exam of his chest shows diffuse expiratory wheezes and rare crackles cardiac exam shows a regular S1 and S2 without murmurs abdomen is soft nontender there's no lower extremity edema Last 48 Hrs of Labs/Chau: Laboratory Tests 12/09/17 0640: Sodium Pending, Potassium Pending, Chloride Pending, Carbon Dioxide Pending, Anion Gap Pending, BUN Pending, Creatinine Pending, BUN/Creatinine Ratio Pending , Fsl-Y-Afsshepvxla Pept Pending, CBC w Diff Pending, WBC Pending, RBC Pending, Hgb Pending, Hct Pending, MCV Pending, MCH Pending, MCHC Pending, RDW Pending, Plt Count Pending, MPV Pending 12/08/17 1438: Lactic Acid Cancelled 12/08/17 1200: Anion Gap 13, Estimated GFR > 60, BUN/Creatinine Ratio 21.4, Glucose 93, Lactic Acid 1.5, Calcium 9.1, Iron 46 L, TIBC 277, Ferritin 85.0, Total Bilirubin 0.6, AST 24, ALT 43, Alkaline Phosphatase 68, Troponin I < 0.01, Total Protein 6.6, Albumin 3.6, Globulin 3.0, Albumin/Globulin Ratio 1.2, CBC w Diff NO MAN DIFF REQ, RBC 4.41 L, MCV 92.9, MCH 30.5, MCHC 32.9 L, RDW 14.3, MPV 6.5 L, Gran % 69.0, Lymphocytes % 28.1, Monocytes % 1.7, Eosinophils % 0.7, Basophils % 0.5, Absolute Granulocytes 9.3 H, Absolute Lymphocytes 3.8 H, Absolute Monocytes 0.2, Absolute Eosinophils 0.1, Absolute Basophils 0.1 Microbiology 12/08 1350 NASOPHARYN: Influenza Virus A & B Rapid Smear - COMP Assessment/Plan Impression/Plan: 82 year-old to purportedly is had abnormal breath sounds and is found to have evidence of bronchospasm. He reports some improvement with IV Solu-Medrol and Zithromax. Concern is raised over the extent of bronchiectasis, possible chronic aspiration, or occult CHF. Recommendations: Recommend noncontrast CT scan of the chest. Bedside spirometry. BNP. Modified barium swallow. Continue IV steroids at every 8 hours. Patient should have outpatient sleep study Consult Acknowledgment - Thank you for your consult request.
--- NOTE | 2017-12-09 10:50 | CT SCAN REPORT ---
EXAMINATION: CT CHEST WITHOUT CONTRAST CLINICAL INFORMATION: Crackles on exam. Presumptive diagnosis of chronic bronchitis or aspiration. COMPARISON: Chest x-ray dated 12/08/2017. CT scan of the chest dated 09/26/2014. TECHNIQUE: Multidetector volumetric CT imaging of the chest was obtained noncontrast. Sagittal and coronal reformations were obtained. DLP: 672.29 mGy-cm. FINDINGS: LUNGS: There is a small amount of pleural-based opacity and pleural thickening seen posterior medially within the right lower lobe with associated mild tubular traction bronchiectasis. These findings are unchanged compared to 09/26/2014 and are consistent with chronic atelectasis or scarring. There is also mild tubular bronchiectasis seen posteriorly within both lower lobes. Mild to moderate centrilobular emphysema is noted. No focal lung nodule or mass. No effusion or pneumothorax. Central airways patent and diffusely thickened. LYMPHOVASCULAR STRUCTURES: Aortic and heart size normal. 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 Mild aortic and moderate coronary artery calcifications. No pericardial effusion. No mediastinal, hilar or axillary adenopathy or free fluid collection. THYROID GLAND: Unremarkable to the extent included. UPPER ABDOMEN: The gallbladder is contracted and filled with multiple peripherally rim calcified gallstones, unchanged from prior exam. There is an exophytic 4.8 x 4.0 cm fluid attenuation mass in the upper pole of the left kidney, consistent with a cyst, similar to prior exam. Included portions of the solid organs in the upper abdomen within normal limits. BONES: Moderate vertebral spondylosis is seen throughout the mid and lower thoracic spine. No suspicious focal findings. IMPRESSION: 1. No evidence of acute pulmonary process. 2. Chronic area of minimal pleural-based opacity and pleural thickening seen posterior medially within the right lower lobe, with associated mild tubular bronchiectasis, unchanged from 09/26/2014, consistent with an area of chronic atelectasis or scarring. No endobronchial mass/mucus is seen. 3. Mild tubular bronchiectasis in both lower lobes extending to the pleural surfaces. The patient does have underlying emphysema. 4. Cholelithiasis and upper pole left renal cyst, similar to prior exam.
[2017-12-09 14:27] VITALS: BP 136/70
--- NOTE | 2017-12-09 14:35 | PN- Student ---
Subjective Subjective: There were no overnight events. Mr. Lopez reports getting only 4 hours of sleep which he states is his baseline, as he watches TV late into the night. He adds that the crackles have improved and continues to deny any shortness of breath or difficulty breathing. He does not endorse any chest pain, palpitations, abdominal pain or any n/v. Objective Objective: Current Medications Sig/Raulito Start time Last Medication Dose Route Stop Time Status Admin Acetaminophen 650 MG Q6P PRN 12/08 1530 AC PO Aspirin Buffered 81 MG DAILY 12/09 1000 AC 12/09 PO 0805 Atorvastatin Calcium 40 MG 1700 12/08 1700 AC 12/08 PO 1730 Azithromycin 500 MG DAILY@1300 12/09 1300 AC 12/09 Dextrose/Water 250 ML IV 1305 Bisacodyl 15 MG ONE ONE 12/09 1015 DC 12/09 PO 12/09 1016 1119 Budesonide/ 2 PUF BID 12/08 2200 AC 12/09 Formoterol Fumarate INH 0806 Enoxaparin Sodium 40 MG DAILY 12/08 1529 AC 12/09 SC 0804 Ferrous Sulfate 325 MG DAILY 12/09 1000 AC 12/09 PO 0832 Guaifenesin 600 MG Q12 12/08 1357 AC 12/09 PO 0804 Losartan Potassium 50 MG DAILY 12/09 1000 AC 12/09 PO 0805 Meclizine HCl 12.5 MG TID PRN 12/08 1530 AC PO Melatonin 5 MG ONCE ONE 12/09 0130 DC 12/09 PO 12/09 0131 0126 Methylprednisolone 40 MG Q12 12/09 1000 AC 12/09 IV 0804 Tamsulosin HCl 0.4 MG DAILY 12/09 1000 AC 12/09 PO 0805 Laboratory Tests 12/09 12/08 0640 1438 Chemistry Sodium (137 - 145 mmol/L) 143 Potassium (3.5 - 5.1 mmol/L) 4.3 Chloride (98 - 107 mmol/L) 104 Carbon Dioxide (22 - 30 mmol/L) 25 Anion Gap (5 - 16) 13 BUN (9 - 20 mg/dL) 19 Creatinine (0.7 - 1.2 mg/dL) 0.7 Estimated GFR (>60 ml/min) > 60 BUN/Creatinine Ratio (7 - 25 %) 27.1 H Lactic Acid Cancelled Zst-I-Chbsxqilwvj Pept (<125 pg/mL) 149 H Hematology CBC w Diff NO MAN DIFF REQ WBC (4.8 - 10.8 /CUMM) 13.8 H RBC (4.70 - 6.10 /CUMM) 4.20 L Hgb (14.0 - 18.0 G/DL) 12.9 L Hct (42 - 52 %) 38.6 L MCV (80.0 - 94.0 FL) 92.1 MCH (27.0 - 31.0 PG) 30.9 MCHC (33.0 - 37.0 G/DL) 33.5 RDW (11.5 - 14.5 %) 14.3 Plt Count (130 - 400 /CUMM) 271 MPV (7.4 - 10.4 FL) 7.0 L Gran % (42.2 - 75.2 %) 80.2 H Lymphocytes % (20.5 - 51.1 %) 13.7 L Monocytes % (1.7 - 9.3 %) 6.0 Eosinophils % (0 - 5 %) 0 Basophils % (0.0 - 2.0 %) 0.1 Absolute Granulocytes (1.4 - 6.5 /CUMM) 11.1 H Absolute Lymphocytes (1.2 - 3.4 /CUMM) 1.9 Absolute Monocytes (0.10 - 0.60 /CUMM) 0.8 H Absolute Eosinophils (0.0 - 0.7 /CUMM) 0 Absolute Basophils (0.0 - 0.2 /CUMM) 0 Vital Signs Date Time Temp Pulse Resp B/P B/P Pulse O2 O2 Flow FiO2 Mean Ox Delivery Rate 12/09 804 136/80 12/09 0805 136/80 12/09 0546 98.0 72 20 136/80 92 Room Air 12/09 0000 Room Air 12/08 2226 98.3 84 20 138/80 92 Room Air 12/08 1602 97.9 84 20 140/80 93 Room Air 12/08 1539 97.9 83 22 142/76 93 Room Air Intake & Output 12/09 1600 12/09 0800 12/09 0000 Intake Total 360 480 Output Total Balance 360 480 Intake, Oral 360 480 Patient 255 lb 255 lb Weight Weight Bed scale Measurement Method Imaging: CT chest non-contrast impressions 12/09/17 1. No evidence of acute pulmonary process. 2. Chronic area of minimal pleural-based opacity and pleural thickening seen posterior medially within the right lower lobe, with associated mild tubular bronchiectasis, unchanged from 09/26/2014, consistent with an area of chronic atelectasis or scarring. No endobronchial mass/mucus is seen. 3. Mild tubular bronchiectasis in both lower lobes extending to the pleural surfaces. The patient does have underlying emphysema. 4. Cholelithiasis and upper pole left renal cyst, similar to prior exam. Chest X-ray 12/08/17 -Lungs clear, no acute disease PE: Gen: AOx3, no acute distress, cooperative CV: decreased heart sounds, regular rate and rhythym normal S1 & S2 Pulm: Wheezing present on exhalation, crackles present in posterior lung donahue Abd: normal bowel sounds, soft, non-tender Extremities: no edema, peripheral pulses 2+ radial, dorsal pedis and posterior tibal bilaterally Assessment/Plan Assessment: Mr. 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 He denies any shortness of breath or difficulty breathing. He has a cough which he states produces mucus but he swallows it and is unable to identify any character to it. He and his report daytime somulence with his adding he snores at night. He adds he has been feeling dizzy/lightheaded when getting out of bed in the morning and is being treated successfully with meclizine. He has not had a BM in a few days. Plan: Problem list: 1. Chronic Bronchitis/Chronic aspiration 2. HERB 3. Sleep apnea 4. Dizziness/lightheadedness 5. Constipation 6. chronic medical conditions #chronic bronchitis/chronic aspiration: Patient has a history of 3 months of crackles, but denies any SOB or difficulty in breathing. His crackles have improved with IV steroids and abx therapy. He also has a hx of stroke 5 years ago which left his right leg weak. It is possible his crackles are related to a chronic aspiration of food and fluids. -Continue IV abx and steroids -discharge with oral Azithromycin and steroid taper -swallow study prior to discharge #HERB: patient's CBC indicated possible Iron deficiency anemia. Repeat CBC today shows a further drop in his RBCs however this is likely due to dilution effect of IV fluids. He denies any darkening of his stools at home as he has been constipated for a few days now. -Iron supplementation -continue to monitor CBCs -if BM indicates dark stool test for FOB #sleep apnea: Patient has a history of snoring at night and daytime solmenence, likely due to obstructive sleep apnea. However patient does report he likes to stay up late to watch TV. -f/u sleep study when discharged -consider CPAP for [facility] -sleep hygeine #Dizziness/lightheadedness:Patient reports dizziness upon standing in the mornings, however has not felt that way recently due to control with meclezine. Most likely related to current infectious cause. -continue meclezine as needed #Constipation:Patient has not had a BM in a few days, does take a laxative at home PRN. -Laxative tx -Stool softner -High fiber diet #chronic medical conditions: -continue home medications DVT prophylaxis with enoxaparin Heart healthy diet Full code
--- NOTE | 2017-12-09 14:46 | RADIOLOGY REPORT ---
EXAMINATION: XR MODIFIED BARIUM SWALLOW CLINICAL INFORMATION: Aspiration. Evaluate swallowing mechanism. COMPARISON: None. TECHNIQUE: A modified barium swallow was performed with speech pathologist in attendance. Pur?e, honey thick, nectar thick, thin, bread, and cracker consistencies were given to the patient and the swallowing mechanism was observed fluoroscopically with several spot films taken using the last image hold feature. FLUOROSCOPY TIME: 3 minutes 9 seconds. FINDINGS: With puree, nectar, bread and cracker consistencies, the oropharyngeal phase of swallowing is normal with no laryngeal or nasopharyngeal aspiration seen. With all consistencies, there is [id number] pooling of contrast in the valleculae and piriform sinuses. With honey and thin liquids, silent penetration of contrast is seen, remaining above the vocal cord level with honey and extending below the vocal cord level with thin liquids. IMPRESSION: 1. Silent penetration of contrast with honey and thin liquids. 2. Mild pooling of contrast in the valleculae and piriform sinuses. 3. Speech pathologist assessment issued separately.
[2017-12-09] MEDS ORDERED: AZITHROMYCIN250 M1 PO (15:01)
[2017-12-09] MEDS ORDERED: PREDNISONE10 M2 PO (15:01)
--- NOTE | 2017-12-09 15:05 | Patient Discharge Instructions ---
Discharge Instructions General Discharge Information You were seen/treated for: Aspiration pneumonitis Watch for these problems: Fever, chest pain, shortness of breath Special Instructions: Please take all medications as directed. Please follow up with primary care and pulmonology for sleep study. Diet Continue normal diet: No Additional DIET Information: [place] thick liquids Activity Full Activity/No Limits: Yes Acute Coronary Syndrome Inclusion Criteria At DC or during hospital stay patient has or had the following: ACS DIAGNOSIS No Discharge Core Measures Meds if any: Prescribed or Continued at Discharge Meds if any: NOT Prescribed or Continued at Discharge Congestive Heart Failure Inclusion Criteria At DC or during hospital stay patient has or had the following: CHF DIAGNOSIS No Discharge Core Measures Meds if any: Prescribed or Continued at Discharge Meds if any: NOT Prescribed or Continued at Discharge Cerebrovascular accident Inclusion Criteria At DC or during hospital stay patient has or had the following: CVA/TIA Diagnosis No Discharge Core Measures Meds if any: Prescribed or Continued at Discharge Meds if any: NOT Prescribed or Continued at Discharge Venous thromboembolism Inclusion Criteria VTE Diagnosis No VTE Type NONE VTE Confirmed by (Test) NONE Discharge Core Measures - Per Current guidelines, there needs to be overlap - treatment for the first 5 days of Warfarin therapy. - If discharged on Warfarin prior to 5 days of - overlap therapy, the patient will need to be - assessed for post discharge needs including - *Post discharge parental anticoagulation - *Warfarin and/or parental anticoagulation education - *Follow up date to check INR post discharge At least 5 days overlap therapy as Inpatient No Meds if any: Prescribed or Continued at Discharge Note: Overlap Therapy is Warfarin and Anticoagulant Meds if any: NOT Prescribed or Continued at Discharge
[2017-12-09 22:22] VITALS: BP 148/90
--- NOTE | 2017-12-10 07:51 | PN- Housestaff ---
See Addendum Subjective Follow-up For: Chronic aspiration pneumonitis Subjective: Earlier this morning, the patient was acutely agitated and delirious. He received 0.5 mg IM haloperidol with good effect. This morning upon evaluation, the patient is back at baseline mentation. He is profusely apologetic about his behavior this morning. Otherwise, he says his breathing is better. His is worried about whether he will be strong enough to come home given that they have 11 stairs. Review of Systems Constitutional: Reports: no symptoms. EENTM: Reports: no symptoms. Cardiovascular: Reports: no symptoms. Respiratory: Reports: see HPI. Gastrointestinal: Reports: no symptoms. Genitourinary: Reports: no symptoms. Musculoskeletal: Reports: no symptoms. Skin: Reports: no symptoms. Neurological/Psychological: Reports: see HPI. Hematologic/Endocrine: Reports: no symptoms. Immunologic/Allergic: Reports: no symptoms. Objective Last 24 Hrs of Vital Signs/I&O Vital Signs Date Time Temp Pulse Resp B/P B/P Pulse O2 O2 Flow FiO2 Mean Ox Delivery Rate 12/09 2222 98.2 69 20 148/90 95 Room Air 12/09 1600 Room Air 12/09 1427 98.2 77 20 136/70 93 Room Air 12/09 0805 136/80 12/09 0805 136/80 Intake & Output 12/10 0800 12/10 0000 12/09 1600 Intake Total 350 200 Output Total Balance 350 200 Intake, Oral 350 200 Physical Exam General Appearance: Alert, Oriented X3, Cooperative, No Acute Distress Cardiovascular: Regular Rate, Normal S1, Normal S2 Lungs: mild/moderate wheezing with mild crackles at base Abdomen: Normal Bowel Sounds, Soft, No Tenderness Extremities: No Edema, Normal Pulses, No Tenderness/Swelling Current Medications: Current Medications Sig/Raulito Start time Last Medication Dose Route Stop Time Status Admin Acetaminophen 650 MG Q6P PRN 12/08 1530 AC PO Aspirin Buffered 81 MG DAILY 12/09 1000 AC 12/09 PO 0805 Atorvastatin Calcium 40 MG 1700 12/08 1700 AC 12/09 PO 1657 Azithromycin 500 MG DAILY@1300 12/09 1300 AC 12/09 Dextrose/Water 250 ML IV 1305 Bisacodyl 5 MG DAILY PRN 12/10 1000 AC PO Bisacodyl 15 MG ONE ONE 12/09 1015 DC 12/09 PO 12/09 1016 1119 Budesonide/ 2 PUF BID 12/08 2200 AC 12/09 Formoterol Fumarate INH 2113 Enoxaparin Sodium 40 MG DAILY 12/08 1529 AC 12/09 SC 0804 Ferrous Sulfate 325 MG DAILY 12/09 1000 AC 12/09 PO 0832 Guaifenesin 600 MG Q12 12/08 1357 AC 12/09 PO 2114 Haloperidol 0.5 MG ONCE ONE 12/10 0515 DC 12/10 IM 12/10 0516 0515 Losartan Potassium 50 MG DAILY 12/09 1000 AC 12/09 PO 0805 Meclizine HCl 12.5 MG TID PRN 12/08 1530 AC PO Methylprednisolone 40 MG Q24 12/10 1000 AC IV Methylprednisolone 40 MG Q12 12/09 1000 DC 12/09 IV 2113 Patient Medication 1 ED ONE ONE 12/09 1445 DC Teaching ED 12/09 1446 Tamsulosin HCl 0.4 MG DAILY 12/09 1000 AC 12/09 PO 0805 Assessment/Plan Assessment: Mr. Lopez is an 82-year-old male with past medical history of cerebrovascular accident 5 years ago now with right lower extremity weakness, hypertension, hyperlipidemia, urinary incontinence, and HFpEF who presents with complaints of crackles when breathing. Problem list: 1. Chronic aspiration pneumonitis 2. Normocytic anemia 3. Mild hypernatremia 4. Delirium, resolved #Chronic aspiration pneumonitis: Patient presented with complaints of 3 months of productive cough. He has had episodes in the past it seems. He is a never smoker. There does not seem to be any acute pneumonia and the chest x-ray is clear. Influenza swab negative. Modified barium swallow revealed that he is aspirating chronically and this is probably what is causing his crackles. -IV methylprednisone 40 mg daily, present taper tomorrow -Azithromycin -Guaifenesin -C nebs -Incentive spirometry -Follow cultures -Appreciate pulmonology recommendations -[place] thick liquids #Delirium: Patient was delirious this morning and required 0.5 mg IM haloperidol. This morning upon evaluation, his mentation is back to baseline. Likely caused by changed environment. -Continue to monitor #Normocytic anemia: Patient has a mild anemia no signs of bleeding. Iron studies showed low iron. -Ferrous sulfate supplementation #Mild hypernatremia: Mild. -Continue to monitor #Chronic medical problems: -Continue home medications DVT prophylaxis with enoxaparin Heart healthy diet, nectar thick liquids Full code Problem List: 1. Aspiration, chronic pulmonary Pain Ratin Pain Location: no Pain Goal: Remain pain free Pain Plan: see a/p Tomorrow's Labs & Rationales: no
[2017-12-10 08:24] LABS: ABSOLUTE BASOPHIL COUNT 0.1 /CUMM (0.0-0.2); ABSOLUTE EOSINOPHIL COUNT 0 /CUMM (0.0-0.7); ABSOLUTE GRANULOCYTE CT 16.9 /CUMM (1.4-6.5); ABSOLUTE LYMPH COUNT 1.7 /CUMM (1.2-3.4); ABSOLUTE MONOCYTE COUNT 0.5 /CUMM (0.10-0.60); BASOPHIL % 0.3 % (0.0-2.0); EOSINOPHIL % 0 % (0-5); HEMATOCRIT 41.8 % (42-52); MEAN CORPUSCULAR HGB 30.8 PG (27.0-31.0); MEAN CORPUSCULAR HGB CONC 33.6 G/DL (33.0-37.0); MEAN CORPUSCULAR VOLUME 91.7 FL (80.0-94.0); MEAN PLATELET VOLUME 6.7 FL (7.4-10.4); PLATELET COUNT 344 /CUMM (130-400); RBC DISTRIBUTION WIDTH 14.2 % (11.5-14.5); RED BLOOD CELL CT 4.56 /CUMM (4.70-6.10); WHITE BLOOD CELL COUNT 19.2 /CUMM (4.8-10.8)
[2017-12-10 08:25] VITALS: BP 136/84
--- NOTE | 2017-12-10 08:26 | PN- Pulmonary ---
Subjective HPI/Critical Care Issues: Patient feels improved shortness of breath is improved Objective Current Medications: Current Medications Sig/Raulito Start time Last Medication Dose Route Stop Time Status Admin Acetaminophen 650 MG Q6P PRN 12/08 1530 AC PO Aspirin Buffered 81 MG DAILY 12/09 1000 AC 12/09 PO 0805 Atorvastatin Calcium 40 MG 1700 12/08 1700 AC 12/09 PO 1657 Azithromycin 500 MG DAILY@1300 12/09 1300 AC 12/09 Dextrose/Water 250 ML IV 1305 Bisacodyl 5 MG DAILY PRN 12/10 1000 AC PO Bisacodyl 15 MG ONE ONE 12/09 1015 DC 12/09 PO 12/09 1016 1119 Budesonide/ 2 PUF BID 12/08 2200 AC 12/09 Formoterol Fumarate INH 2113 Enoxaparin Sodium 40 MG DAILY 12/08 1529 AC 12/09 SC 0804 Ferrous Sulfate 325 MG DAILY 12/09 1000 AC 12/09 PO 0832 Guaifenesin 600 MG Q12 12/08 1357 AC 12/09 PO 2114 Haloperidol 0.5 MG ONCE ONE 12/10 0515 DC 12/10 IM 12/10 0516 0515 Losartan Potassium 50 MG DAILY 12/09 1000 AC 12/09 PO 0805 Meclizine HCl 12.5 MG TID PRN 12/08 1530 AC PO Methylprednisolone 40 MG Q24 12/10 1000 AC IV Methylprednisolone 40 MG Q12 12/09 1000 DC 12/09 IV 2113 Patient Medication 1 ED ONE ONE 12/09 1445 DC Teaching ED 12/09 1446 Tamsulosin HCl 0.4 MG DAILY 12/09 1000 AC 12/09 PO 0805 Vital Signs & I&O Last 24 Hrs of Vitals and I&O: Vital Signs Date Time Temp Pulse Resp B/P B/P Pulse O2 O2 Flow FiO2 Mean Ox Delivery Rate 12/092 98.2 69 20 148/90 95 Room Air 12/09 1600 Room Air 12/09 1427 98.2 77 20 136/70 93 Room Air Intake & Output 12/10 1600 12/10 0800 12/10 0000 Intake Total 350 Output Total Balance 350 Intake, Oral 350 And saturation room air 95% exam of his chest shows clear lung donahue are no wheezes cardiac exam shows a regular S1 and S2 without murmurs Impression/Plan Impression/Plan Impression/Plan: 82-year-old admitted with bronchospasm likely related to chronic aspiration based on barium swallow. CT scan shows evidence of bronchiectasis without acute infection. Recommendations: Aspiration precaution. Outpatient sleep study. Rapidly taper prednisone
[2017-12-10 08:59] LABS: GRANULOCYTE % 88.1 % (42.2-75.2)
[2017-12-10] MEDS ORDERED: AZITHROMYCIN250 M1 PO ×2 (10:13→14:42)
[2017-12-10] MEDS ORDERED: PREDNISONE10 M2 PO ×2 (10:13→14:42)
--- NOTE | 2017-12-10 10:14 | Discharge Summary ---
Visit Information Visit Dates Admission Date: 12/08/17 Discharge Date: 12/12/17 Hospital Course Course Attending Physician: Purnima Tapia MD Primary Care Physician: Lianet GARSIA,Michel Gardner Hospital Course: Mr. Lopez is an 82-year-old male with past medical history of cerebrovascular accident 5 years ago now with right lower extremity weakness, hypertension, hyperlipidemia, urinary incontinence, and HFpEF who presented with complaints of crackles when breathing. On presentation, vital signs were T 96.0, HR 89, RR 16, BP 134/77, saturating 94 % on room air. Laboratories were significant for white blood cell count 13.4, hemoglobin 13.4, sodium 146, chloride 108, lactic acid 1.5, negative LFTs, troponin less than 0.01. Chest x-ray showed no acute disease. He received methylprednisone, ceftriaxone, and azithromycin in the emergency room. He was admitted to general medicine and treated for following problems: 1. Chronic aspiration pneumonitis 2. Normocytic anemia 3. Mild hypernatremia 4. Delirium #Chronic aspiration pneumonitis: Patient presented with complaints of 3 months of productive cough. He has had episodes in the past it seems. He is a never smoker. Chest x-ray was clear. Influenza swab negative. Chest CT showed no evidence of acute pulmonary disease but did show a chronic area of pleural based opacity that was unchanged from prior study I mild tubular bronchiectasis with underlying emphysema. Modified barium swallow showed silent penetration of contrast with honey and thin liquids and mild pooling of contrast in the valleculae and piriform sinuse. This revealed that he was aspirating chronically and this is probably what is causing his crackles. He was placed on a nectar thick diet and should continue this going forward. He should also continue the steroid taper and azithromycin. He should follow-up with pulmonology for a sleep study. #Delirium: Patient was delirious and received 0.5 mg IM haloperidol. The following morning, his mentation was back at baseline and he did not require any further treatment. #Normocytic anemia: Patient had mild anemia no signs of bleeding. Iron studies showed low iron. He was started on ferrous sulfate and should continue this. #Mild hypernatremia: This was mild and he was asymptomatic. #Chronic medical problems: His other home medications were continued. Allergies: Coded Allergies: No Known Allergies (01/24/17) Disposition Summary Disposition Principal Diagnosis: 1. Chronic aspiration pneumonitis Additional Diagnosis: 2. Normocytic anemia 3. Mild hypernatremia 4. Delirium Discharge Disposition: home health services Discharge Instructions General Discharge Information Code Status: Full Code Patient's Diet: Heart healthy diet, nectar thick liquids Patient's Activity: As tolerated Follow-Up Instructions/Appts: Please take all medications as directed. Please follow with nectar thick liquid diet. Please follow-up with pulmonology for sleep study. Medications at Discharge Discharge Medications: Continue taking these medications: Albuterol Sulfate (Proair Hfa) 90 MCG HFA.AER.AD 2 Puff Inhale through mouth EVERY 4-6 HOURS NEEDED as needed for SHORTNESS OF BREATH Comments: DID NOT TAKE MEDICATION IN HOSPITAL Aspirin (Ecotrin*) 81 MG TABLET.DR 1 Tablet ORAL DAILY Comments: Last Taken: 12/12/17 Time: 8:00 am Atorvastatin Calcium (Atorvastatin Calcium) 40 MG TABLET 1 Tablet ORAL 5 PM Comments: Last Taken 12/11/17 Time: 5:00 pm Fluticasone/Salmeterol (Advair 250-50 Diskus) 250 MCG-50 MCG/DOSE BLST.W.DEV 1 Puff Inhale through mouth TWICE DAILY Qty = 180 Comments: SYMBICORT GIVEN IN HOSPITAL LAST DOSE 12/12/17 AT 10 AM Losartan Potassium (Losartan Potassium) 50 MG TABLET 1 Tablet ORAL DAILY Qty = 90 Comments: Last Taken: 12/12/17 Time: 8:00 am Tamsulosin HCl (Tamsulosin HCl) 0.4 MG CAP.ER.24H 1 Capsule ORAL DAILY Qty = 90 Comments: Last Taken: 12/12/17 Time: 8:00 AM Lisinopril (Prinivil) 5 MG TABLET 1 Tablet ORAL DAILY Comments: DID NOT ADMINISTER IN HOSPITAL Meclizine HCl (Meclizine HCl) 12.5 MG TABLET 1 Tablet ORAL THREE TIMES DAILY as needed for LIGHTHEADEDNESS Qty = 30 Comments: DID NOT ADMINISTER Start taking the following new medications: Prednisone (Prednisone) 10 MG TABLET 1 Tablet ORAL DAILY Qty = 3 No Refills Instructions: Please take 20mg on 12/13/17, 10mg on 12/14/17, then stop Comments: Last Taken: 12/12/17 Time: 8:00 am Copies To: Lianet GARSIA,Michel Gardner; Jad GARSIA,Irvin Bermeo
[2017-12-10 14:33] VITALS: BP 140/80
[2017-12-10 21:47] VITALS: BP 152/62
[2017-12-11 06:51] VITALS: BP 150/90
--- NOTE | 2017-12-11 07:16 | PN- Housestaff ---
See Addendum Subjective Follow-up For: Chronic aspiration Subjective: No overnight events. Patient was supposed to leave yesterday but was too weak to go home. Today, he will go to short-term rehabilitation hopefully. He did well overnight and has no complaints this morning. Review of Systems Constitutional: Reports: no symptoms. EENTM: Reports: no symptoms. Cardiovascular: Reports: no symptoms. Respiratory: Reports: no symptoms. Gastrointestinal: Reports: no symptoms. Genitourinary: Reports: no symptoms. Musculoskeletal: Reports: no symptoms. Skin: Reports: no symptoms. Neurological/Psychological: Reports: no symptoms. Hematologic/Endocrine: Reports: no symptoms. Immunologic/Allergic: Reports: no symptoms. Objective Last 24 Hrs of Vital Signs/I&O Vital Signs Date Time Temp Pulse Resp B/P B/P Pulse O2 O2 Flow FiO2 Mean Ox Delivery Rate 12/11 0651 98.1 89 20 150/90 94 Room Air 12/10 2147 98.2 101 20 152/62 94 Room Air 12/10 1434 Room Air Room Air 12/10 1433 98.0 90 18 140/80 97 Room Air 12/10 1428 Room Air Room Air 12/10 1006 76 130/80 12/10 1005 76 130/80 12/10 0826 92 Room Air 12/10 0825 98.5 98 20 136/84 12/10 0800 Room Air Intake & Output 12/11 0800 12/11 0000 12/10 1600 Intake Total 100 200 800 Output Total Balance 100 200 800 Intake, Oral 100 200 800 Physical Exam General Appearance: Alert, Oriented X3, Cooperative, No Acute Distress Cardiovascular: Regular Rate, Normal S1, Normal S2 Lungs: crackles Abdomen: Normal Bowel Sounds, Soft, No Tenderness Current Medications: Current Medications Sig/Raulito Start time Last Medication Dose Route Stop Time Status Admin Acetaminophen 650 MG Q6P PRN 12/08 1530 AC PO Aspirin Buffered 81 MG DAILY 12/09 1000 AC 12/10 PO 1005 Atorvastatin Calcium 40 MG 1700 12/08 1700 AC 12/10 PO 1728 Azithromycin 250 MG DAILY 12/10 1415 AC 12/10 PO 12/12 1001 1728 Azithromycin 500 MG DAILY@1300 12/09 1300 DC 12/09 Dextrose/Water 250 ML IV 1305 Bisacodyl 5 MG DAILY PRN 12/10 1000 AC PO Budesonide/ 2 PUF BID 12/08 2200 AC 12/10 Formoterol Fumarate INH 2115 Enoxaparin Sodium 40 MG DAILY 12/08 1529 AC 12/10 SC 1006 Ferrous Sulfate 325 MG DAILY 12/09 1000 AC 12/10 PO 1005 Guaifenesin 600 MG Q12 12/08 1357 AC 12/10 PO 2115 Losartan Potassium 50 MG DAILY 12/09 1000 AC 12/10 PO 1005 Meclizine HCl 12.5 MG TID PRN 12/08 1530 AC PO Methylprednisolone 40 MG Q24 12/10 1000 DC 12/10 IV 1006 Methylprednisolone 40 MG Q12 12/09 1000 DC 12/09 IV 2113 Patient Medication 1 ED ONE ONE 12/10 1430 DC 12/10 Teaching ED 12/10 1431 1728 Prednisone 10 MG DAILY 12/14 1000 AC PO 12/14 1001 Prednisone 20 MG DAILY 12/13 1000 AC PO 12/13 1001 Prednisone 30 MG DAILY 12/12 1000 AC PO 12/12 1001 Prednisone 40 MG DAILY 12/11 1000 CAN PO 12/15 0959 Prednisone 40 MG DAILY 12/11 1000 AC PO 12/11 1001 Tamsulosin HCl 0.4 MG DAILY 12/09 1000 AC 12/10 PO 1006 Last 24 Hrs of Lab/Chau Results Last 24 Hrs of Labs/Mics: Laboratory Tests 12/10/17 0804: CBC w Diff NO MAN DIFF REQ, RBC 4.56 L, MCV 91.7, MCH 30.8, MCHC 33.6, RDW 14.2 , MPV 6.7 L, Gran % 88.1 H, Lymphocytes % 9.0 L, Monocytes % 2.6, Eosinophils % 0, Basophils % 0.3, Absolute Granulocytes 16.9 H, Absolute Lymphocytes 1.7, Absolute Monocytes 0.5, Absolute Eosinophils 0, Absolute Basophils 0.1 Assessment/Plan Assessment: Mr. Lopez is an 82-year-old male with past medical history of cerebrovascular accident 5 years ago now with right lower extremity weakness, hypertension, hyperlipidemia, urinary incontinence, and HFpEF who presents with complaints of crackles when breathing. Problem list: 1. Chronic aspiration pneumonitis 2. Normocytic anemia 3. Mild hypernatremia 4. Delirium, resolved #Chronic aspiration pneumonitis: Patient presented with complaints of 3 months of productive cough. He has had episodes in the past it seems. He is a never smoker. There does not seem to be any acute pneumonia and the chest x-ray is clear. Influenza swab negative. Modified barium swallow revealed that he is aspirating chronically and this is probably what is causing his crackles. He was supposed to be discharged home yesterday but it was noted that he was too weak to get up. He stayed overnight and will be going to short-term rehabilitation today. -Prednisone taper -Azithromycin -Guaifenesin -TRC nebs -Incentive spirometry -Follow cultures -Appreciate pulmonology recommendations -[place] thick liquids #Delirium: Patient was delirious this morning and required 0.5 mg IM haloperidol. This morning upon evaluation, his mentation is back to baseline. Likely caused by changed environment. -Continue to monitor #Normocytic anemia: Patient has a mild anemia no signs of bleeding. Iron studies showed low iron. -Ferrous sulfate supplementation #Mild hypernatremia: Mild. -Continue to monitor #Chronic medical problems: -Continue home medications DVT prophylaxis with enoxaparin Heart healthy diet, nectar thick liquids Full code Problem List: 1. Aspiration, chronic pulmonary Pain Ratin Pain Location: no Pain Goal: Remain pain free Pain Plan: see a/p Tomorrow's Labs & Rationales: no
--- NOTE | 2017-12-11 08:34 | PN- Pulmonary ---
Subjective HPI/Critical Care Issues: Patient feels well without cough or shortness of breath Objective Current Medications: Current Medications Sig/Raulito Start time Last Medication Dose Route Stop Time Status Admin Acetaminophen 650 MG Q6P PRN 12/08 1530 AC PO Aspirin Buffered 81 MG DAILY 12/09 1000 AC 12/10 PO 1005 Atorvastatin Calcium 40 MG 1700 12/08 1700 AC 12/10 PO 1728 Azithromycin 250 MG DAILY 12/10 1415 AC 12/10 PO 12/12 1001 1728 Azithromycin 500 MG DAILY@1300 12/09 1300 DC 12/09 Dextrose/Water 250 ML IV 1305 Bisacodyl 5 MG DAILY PRN 12/10 1000 AC PO Budesonide/ 2 PUF BID 12/08 2200 AC 12/10 Formoterol Fumarate INH 2115 Enoxaparin Sodium 40 MG DAILY 12/08 1529 AC 12/10 SC 1006 Ferrous Sulfate 325 MG DAILY 12/09 1000 AC 12/10 PO 1005 Guaifenesin 600 MG Q12 12/08 1357 AC 12/10 PO 2115 Losartan Potassium 50 MG DAILY 12/09 1000 AC 12/10 PO 1005 Meclizine HCl 12.5 MG TID PRN 12/08 1530 AC PO Methylprednisolone 40 MG Q24 12/10 1000 DC 12/10 IV 1006 Patient Medication 1 ED ONE ONE 12/10 1430 DC 12/10 Teaching ED 12/10 1431 1728 Prednisone 10 MG DAILY 12/14 1000 AC PO 12/14 1001 Prednisone 20 MG DAILY 12/13 1000 AC PO 12/13 1001 Prednisone 30 MG DAILY 12/12 1000 AC PO 12/12 1001 Prednisone 40 MG DAILY 12/11 1000 CAN PO 12/15 0959 Prednisone 40 MG DAILY 12/11 1000 AC PO 12/11 1001 Tamsulosin HCl 0.4 MG DAILY 12/09 1000 AC 12/10 PO 1006 Vital Signs & I&O Last 24 Hrs of Vitals and I&O: Vital Signs Date Time Temp Pulse Resp B/P B/P Pulse O2 O2 Flow FiO2 Mean Ox Delivery Rate 12/11 0651 98.1 89 20 150/90 94 Room Air 12/107 98.2 101 20 152/62 94 Room Air 12/10 1434 Room Air Room Air 12/10 1433 98.0 90 18 140/80 97 Room Air 12/10 1428 Room Air Room Air 12/10 1006 76 130/80 12/10 1005 76 130/80 Intake & Output 12/11 1600 12/11 0800 12/11 0000 Intake Total 100 200 Output Total Balance 100 200 Intake, Oral 100 200 Since saturation room air 94% exam of his chest shows clear lung donahue are no wheezes cardiac exam shows regular S1 and S2 without murmurs Impression/Plan Impression/Plan Impression/Plan: 82-year-old gentleman presented with bronchospasm possibly related to aspiration is markedly improved after a course of steroids Recommendations: Aspiration precaution. Outpatient sleep study. Rapidly taper prednisone outpatient pulmonary follow-up
--- NOTE | 2017-12-11 10:49 | PN- Student ---
Subjective Subjective: Mr. Lopez has not had any overnight events. However he does report some trouble sleeping overnight, he states that there was noise coming from the area of where his roommate is that caused him to get lack of sleep. He also is looking forward to discharge. He hopes that he is able to go to [facility] for short-term rehab. He still has not had a BM in 2 weeks and is on an over the counter laxative at home for constipation. He adds that his breathing has improved and only notices a slight wheeze. He includes that his dizziness is still present when standing and expereinced this yesterday when working with PT. He denies any headache, CP, palpatations, abdominal pain or dysuria. Objective Objective: Current Medications Sig/Raulito Start time Last Medication Dose Route Stop Time Status Admin Acetaminophen 650 MG Q6P PRN 12/08 1530 AC PO Aspirin Buffered 81 MG DAILY 12/09 1000 AC 12/11 PO 1055 Atorvastatin Calcium 40 MG 1700 12/08 1700 AC 12/10 PO 1728 Azithromycin 250 MG DAILY 12/10 1415 AC 12/11 PO 12/12 1001 1055 Azithromycin 500 MG DAILY@1300 12/09 1300 DC 12/09 Dextrose/Water 250 ML IV 1305 Bisacodyl 5 MG DAILY PRN 12/10 1000 AC 12/11 PO 1055 Budesonide/ 2 PUF BID 12/08 2200 AC 12/11 Formoterol Fumarate INH 1056 Enoxaparin Sodium 40 MG DAILY 12/08 1529 AC 12/11 SC 1056 Ferrous Sulfate 325 MG DAILY 12/09 1000 AC 12/11 PO 1101 Guaifenesin 600 MG Q12 12/08 1357 AC 12/11 PO 1055 Losartan Potassium 50 MG DAILY 12/09 1000 AC 12/11 PO 1057 Meclizine HCl 12.5 MG TID PRN 12/08 1530 AC PO Methylprednisolone 40 MG Q24 12/10 1000 DC 12/10 IV 1006 Patient Medication 1 ED ONE ONE 12/10 1430 DC 12/10 Teaching ED 12/10 1431 1728 Prednisone 10 MG DAILY 12/14 1000 AC PO 12/14 1001 Prednisone 20 MG DAILY 12/13 1000 AC PO 12/13 1001 Prednisone 30 MG DAILY 12/12 1000 AC PO 12/12 1001 Prednisone 40 MG DAILY 12/11 1000 CAN PO 12/15 0959 Prednisone 40 MG DAILY 12/11 1000 DC 12/11 PO 12/11 1001 1055 Tamsulosin HCl 0.4 MG DAILY 12/09 1000 AC 12/11 PO 1055 Vital Signs Date Time Temp Pulse Resp B/P B/P Pulse O2 O2 Flow FiO2 Mean Ox Delivery Rate 12/11 1057 89 150/90 12/11 1055 89 150/90 12/11 0651 98.1 89 20 150/90 94 Room Air 12/10 2147 98.2 101 20 152/62 94 Room Air 12/10 1434 Room Air Room Air 12/10 1433 98.0 90 18 140/80 97 Room Air 12/10 1428 Room Air Room Air Intake & Output 12/11 1600 12/11 0800 12/11 0000 Intake Total 100 200 Output Total Balance 100 200 Intake, Oral 100 200 PE: Gen apperance: no acute distress, AOx3 CV: diminished heart sounds normal rate normal S1&S2, no M/R/G Pulm: Wheezing present over left posterior lung, no crackles or rubs, right posterior clear to auscultation Abd: normal bowel sounds, soft, non-tender Extremities: ecchymosis present over right wrist from prior IV attempt, no rashes present Assessment/Plan Assessment: Mr. 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 Since hospitalization he has recieved IV abx for 2 days and was started on oral Abx yesterday 12/10/17. He also recieved IV steroids since being hospitalized until yesterday, today he started a Prednisone 40 mg taper. His crackles when breathing have progressively improved with today the patient reporting only a slight wheeze. At no point did Mr. Lopez report any SOB, chest pain/tightness or hemoptysis. He only reported feeling dizziness that occured yesterday while performing PT, he did not request Meclizine which is ordered PRN for dizziness. He is recieving PT for strength as he has some difficulty moving around due to right lower extremity weakness which is residual from a CVA x 5 years ago. He was seen by a speech specalist yesterday and as per reccomendation was placed on a nectar thick fluid diet. Plan: Problem List: 1. Aspiration pneumonitis 2. Dizziness 3. Constipation 4. HERB 5. MERCY 6. Chronic medical conditions #Aspiration pneumonitis: Patient presented initially with the complaint of auditory crackles when breathing but no difficulty in breathing. His crackles throughtout his stay in the hospital have continued to improve and today only reports a slight wheeze which is present on PE during exhalation over the posterior left lung. As he has had a stroke in the past some issues with swallowing was suspected and was evaluated by a speech specialist for swallow study. He was placed on nectar thick liquid diet to prevent aspiration, which is suspected to have caused his episodic crackles [id number]. He does have evident leukocytosis on his most recent CBC. However as his symptoms have improved after steroid and abx therapy his infection is resolving. As he is still unsteady while standing it is reccomened he continue PT and be placed in a short term rehabilition facility to address this. However he is stable and the patient states that he is ready for discharge. -DC IV steroids and abx -Complete abx therapy course orally with Azithromycin 250 mg with last dose being 12/12 -Start oral prednisone 40 mg taper -Continue PT -Continue nectar thick fluid diet -Discharge to short term rehabilitation facility #Dizziness: Patient reported episodes of feeling dizzy when standing in the past. Meclizine has helped prevent these episodes and when standing yesterday for PT he did have a short spell of feeling dizzy but did not alert the team or request Meclizine. After speaking to the patient he was educated on the dosing interval and that this medication is as needed to treat when he has episodic dizziness. He will alert the team going forward for feelings of dizziness. He does not report feeling dizzy at this time. This may be related to his ongoing infection and treatment for aspiration pneumonitis. -Continue meclizine PRN -Consider orthostatic vitals #Constipation: Patient reports that he has constipation and at baseline only has a BM 1x per week. However he reports that his last BM may have been 2 weeks ago. He takes OTC laxative at home for these symptoms. On PE he had normal bowel sounds and on palpation no obvious obstruction was noted, therefore it is unlikely he has an SBO. -Laxative -Stool softner -increased fiber in diet -if unable to deficate prior to discharge consider magnesium citrate #HERB: As per lab work up, CBC indicated decreased RBCs, Hfb and HCT. This may be due to a dilutional effect of fluids. However Iron studies also suggested low iron and leads us to suspect HERB. Patient's RBC, Hgb and HCT have improved per CBC done 12/10/17 and may be a combination of supplementation and discontinuation of IV fluids. -DC IV fluids -continue ferrous sulfate #[facility]: Patient's reports frequent snoring and daytime solumenence. He has never had a sleep study done in the past. This may play a role in the patient's inability to get a good nights sleep here in the hospital. -Schedule outpatient Sleep study for possible MERCY #Chronic medical conditions: -continue home medications for ongoing medical conditions. DVT prophylaxis with enoxaparin Heart healthy diet & nectar thick fluids Full code
[2017-12-11 14:48] VITALS: BP 140/78
[2017-12-11 22:20] VITALS: BP 140/80
[2017-12-12 06:26] VITALS: BP 142/88
[2017-12-12] MEDS ORDERED: PREDNISONE10 M2 PO (07:29)
[2017-12-12] MEDS ORDERED: AZITHROMYCIN250 M1 PO (07:29)
--- NOTE | 2017-12-12 07:34 | PN- Housestaff ---
See Addendum Subjective Follow-up For: Chronic aspiration Subjective: No overnight events. He is continuing to do well waiting for a bed at rehabilitation. No complaints. Review of Systems Constitutional: Reports: no symptoms. EENTM: Reports: no symptoms. Cardiovascular: Reports: no symptoms. Respiratory: Reports: no symptoms. Gastrointestinal: Reports: no symptoms. Genitourinary: Reports: no symptoms. Musculoskeletal: Reports: no symptoms. Skin: Reports: no symptoms. Neurological/Psychological: Reports: no symptoms. Hematologic/Endocrine: Reports: no symptoms. Immunologic/Allergic: Reports: no symptoms. Objective Last 24 Hrs of Vital Signs/I&O Vital Signs Date Time Temp Pulse Resp B/P B/P Pulse O2 O2 Flow FiO2 Mean Ox Delivery Rate 12/12 0626 97.6 78 18 142/88 94 Room Air 12/11 2220 98.9 87 18 140/80 94 Room Air 12/11 1448 97.5 82 18 140/78 95 Room Air 12/11 1350 Room Air Room Air 12/11 1057 89 150/90 12/11 1055 89 150/90 Intake & Output 12/12 0800 12/12 0000 12/11 1600 Intake Total 200 200 800 Output Total Balance 200 200 800 Intake, Oral 200 200 800 Number 1 Bowel Movements Physical Exam General Appearance: Alert, Oriented X3, Cooperative, No Acute Distress Cardiovascular: Regular Rate, Normal S1, Normal S2 Lungs: mild crackles Abdomen: Normal Bowel Sounds, Soft, No Tenderness Extremities: No Edema, Normal Pulses, No Tenderness/Swelling Current Medications: Current Medications Sig/Raulito Start time Last Medication Dose Route Stop Time Status Admin Acetaminophen 650 MG Q6P PRN 12/08 1530 AC PO Aspirin Buffered 81 MG DAILY 12/09 1000 AC 12/11 PO 1055 Atorvastatin Calcium 40 MG 1700 12/08 1700 AC 12/11 PO 1731 Azithromycin 250 MG DAILY 12/10 1415 AC 12/11 PO 12/12 1001 1055 Bisacodyl 10 MG ONCE ONE 12/11 1330 DC 12/11 NM 12/11 1331 1525 Bisacodyl 5 MG DAILY PRN 12/10 1000 AC 12/11 PO 1055 Budesonide/ 2 PUF BID 12/08 2200 AC 12/11 Formoterol Fumarate INH 2103 Enoxaparin Sodium 40 MG DAILY 12/08 1529 AC 12/11 SC 1056 Ferrous Sulfate 325 MG DAILY 12/09 1000 AC 12/11 PO 1101 Guaifenesin 600 MG Q12 12/08 1357 AC 12/11 PO 2103 Losartan Potassium 50 MG DAILY 12/09 1000 AC 12/11 PO 1057 Meclizine HCl 12.5 MG TID PRN 12/08 1530 AC PO Prednisone 10 MG DAILY 12/14 1000 AC PO 12/14 1001 Prednisone 20 MG DAILY 12/13 1000 AC PO 12/13 1001 Prednisone 30 MG DAILY 12/12 1000 AC PO 12/12 1001 Prednisone 40 MG DAILY 12/11 1000 DC 12/11 PO 12/11 1001 1055 Tamsulosin HCl 0.4 MG DAILY 12/09 1000 AC 12/11 PO 1055 Assessment/Plan Assessment: Mr. Lopez is an 82-year-old male with past medical history of cerebrovascular accident 5 years ago now with right lower extremity weakness, hypertension, hyperlipidemia, urinary incontinence, and HFpEF who presented with complaints of crackles when breathing. Problem list: 1. Chronic aspiration pneumonitis 2. Normocytic anemia 3. Mild hypernatremia 4. Delirium, resolved #Chronic aspiration pneumonitis: Patient presented with complaints of 3 months of productive cough. He has had episodes in the past it seems. He is a never smoker. There does not seem to be any acute pneumonia and the chest x-ray is clear. Influenza swab negative. Modified barium swallow revealed that he is aspirating chronically and this is probably what is causing his crackles. He is waiting for bed at rehabilitation. -Prednisone taper -Azithromycin -Guaifenesin -TRC nebs -Incentive spirometry -Follow cultures -Appreciate pulmonology recommendations -[place] thick liquids #Delirium: Patient was delirious and required 0.5 mg IM haloperidol a few days ago. His mentation is back to baseline. Likely caused by changed environment. -Continue to monitor #Normocytic anemia: Patient has a mild anemia no signs of bleeding. Iron studies showed low iron. -Ferrous sulfate supplementation #Mild hypernatremia: Mild. -Continue to monitor #Chronic medical problems: -Continue home medications DVT prophylaxis with enoxaparin Heart healthy diet, nectar thick liquids Full code Problem List: 1. Aspiration, chronic pulmonary Pain Ratin Pain Location: no Pain Goal: Remain pain free Pain Plan: see a/p Tomorrow's Labs & Rationales: no
--- NOTE | 2017-12-12 08:51 | PN- Pulmonary ---
Subjective HPI/Critical Care Issues: Patient remains comfortable on room air shortness of breath and cough are improved Objective Current Medications: Current Medications Sig/Raulito Start time Last Medication Dose Route Stop Time Status Admin Acetaminophen 650 MG Q6P PRN 12/08 1530 AC PO Aspirin Buffered 81 MG DAILY 12/09 1000 AC 12/12 PO 0754 Atorvastatin Calcium 40 MG 1700 12/08 1700 AC 12/11 PO 1731 Azithromycin 250 MG DAILY 12/10 1415 AC 12/12 PO 12/12 1001 0753 Bisacodyl 10 MG ONCE ONE 12/11 1330 DC 12/11 AZ 12/11 1331 1525 Bisacodyl 5 MG DAILY PRN 12/10 1000 AC 12/11 PO 1055 Budesonide/ 2 PUF BID 12/08 2200 AC 12/11 Formoterol Fumarate INH 2103 Enoxaparin Sodium 40 MG DAILY 12/08 1529 AC 12/11 SC 1056 Ferrous Sulfate 325 MG DAILY 12/09 1000 AC 12/12 PO 0754 Guaifenesin 600 MG Q12 12/08 1357 AC 12/12 PO 0754 Losartan Potassium 50 MG DAILY 12/09 1000 AC 12/12 PO 0754 Meclizine HCl 12.5 MG TID PRN 12/08 1530 AC PO Prednisone 10 MG DAILY 12/14 1000 AC PO 12/14 1001 Prednisone 20 MG DAILY 12/13 1000 AC PO 12/13 1001 Prednisone 30 MG DAILY 12/12 1000 AC 12/12 PO 12/12 1001 0753 Prednisone 40 MG DAILY 12/11 1000 DC 12/11 PO 12/11 1001 1055 Tamsulosin HCl 0.4 MG DAILY 12/09 1000 AC 12/12 PO 0754 Vital Signs & I&O Last 24 Hrs of Vitals and I&O: Vital Signs Date Time Temp Pulse Resp B/P B/P Pulse O2 O2 Flow FiO2 Mean Ox Delivery Rate 12/12 0754 142/88 12/12 0754 80 142/88 12/12 0626 97.6 78 18 142/88 94 Room Air 12/11 2220 98.9 87 18 140/80 94 Room Air 12/11 1448 97.5 82 18 140/78 95 Room Air 12/11 1350 Room Air Room Air 12/11 1057 89 150/90 12/11 1055 89 150/90 Intake & Output 12/12 1600 12/12 0800 12/12 0000 Intake Total 200 200 Output Total Balance 200 200 Intake, Oral 200 200 Number 1 Bowel Movements Oxygen saturation room air 94% exam of his chest shows clear lung donahue cardiac exam shows normal S1 and S2 Impression/Plan Impression/Plan Impression/Plan: 82-year-old gentleman presented with bronchospasm likely secondary to aspiration which is improved. Recommendations: Aspiration precaution. Outpatient sleep study. Continue rapid steroid taper and outpatient pulmonary follow-up
[2017-12-12] MEDS ORDERED: PRINIVIL5 M1 PO (10:00)
[2017-12-12 10:29] VITALS: BP 142/88
--- NOTE | 2017-12-12 14:59 | PN- Student ---
Subjective Subjective: No overnight events. Mr. Lopez is waiting for discharge to [facility] for short term rehabilitation, as he is doing well and no longer reports crackles while breathing. 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 He is looking forward to discharge and feels ready to go home. He denies any chest pain, headache, abdominal pain, or trouble breathing. Objective Objective: Current Medications Sig/Raulito Start time Last Medication Dose Route Stop Time Status Admin Acetaminophen 650 MG Q6P PRN 12/08 1530 AC PO Aspirin Buffered 81 MG DAILY 12/09 1000 AC 12/12 PO 0754 Atorvastatin Calcium 40 MG 1700 12/08 1700 AC 12/11 PO 1731 Azithromycin 250 MG DAILY 12/10 1415 DC 12/12 PO 12/12 1001 0753 Bisacodyl 5 MG DAILY PRN 12/10 1000 AC 12/11 PO 1055 Budesonide/ 2 PUF BID 12/08 2200 AC 12/12 Formoterol Fumarate INH 1016 Enoxaparin Sodium 40 MG DAILY 12/08 1529 AC 12/12 SC 1014 Ferrous Sulfate 325 MG DAILY 12/09 1000 AC 12/12 PO 0754 Guaifenesin 600 MG Q12 12/08 1357 AC 12/12 PO 1027 Losartan Potassium 50 MG DAILY 12/09 1000 AC 12/12 PO 0754 Meclizine HCl 12.5 MG TID PRN 12/08 1530 AC PO Prednisone 10 MG DAILY 12/14 1000 AC PO 12/14 1001 Prednisone 20 MG DAILY 12/13 1000 AC PO 12/13 1001 Prednisone 30 MG DAILY 12/12 1000 DC 12/12 PO 12/12 1001 0753 Tamsulosin HCl 0.4 MG DAILY 12/09 1000 AC 12/12 PO 0754 Vital Signs Date Time Temp Pulse Resp B/P B/P Pulse O2 O2 Flow FiO2 Mean Ox Delivery Rate 12/12 1029 97.6 80 18 142/88 12/12 0754 142/88 12/12 0754 80 142/88 12/12 0626 97.6 78 18 142/88 94 Room Air 12/11 2220 98.9 87 18 140/80 94 Room Air 12/11 1448 97.5 82 18 140/78 95 Room Air Intake & Output 12/12 1600 12/12 0800 04/12 0000 Intake Total 150 200 200 Output Total Balance 150 200 200 Intake, Oral 150 200 200 Number 1 Bowel Movements Physical Exam: General apperance: AOx3, no evidence of acute distress, sitting up and resting comfortably CV: regular rate and rythym, normal S1&S2, no M/R/G Pulm: wheeze present on auscultation of left posterior lung field, right lung clear on auscultation Abd: normal bowel sounds, soft, non-tender Assessment/Plan Assessment: Mr. 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 Since hospitalization he has recieved IV abx for 2 days and was started on oral Abx on 12/10/17, he will recieve his last dose today. He also recieved IV steroids since being hospitalized with his last does 12/11/17. He was started on a Prednisone 40 mg taper yesterday 12/11/17. His crackles when breathing have progressively improved, however there is still a residual wheeze present on auscultation of the left lung. At no point did Mr. Lopez report any SOB, chest pain/tightness or hemoptysis.He reported some dizziness while performing PT on , however today he edvin any dizziness while standing. He is recieving PT for strength as he has some difficulty moving around due to right lower extremity weakness which is residual from a CVA x 5 years ago. He was seen by a speech specalist and as per reccomendation was placed on a nectar thick fluid diet. Plan: Problem List: 1. Aspiration pneumonitis 2. Dizziness 3. Constipation 4. HERB 5. MERCY 6. Chronic medical conditions #Aspiration pneumonitis: Mr. Lopez was seen by Dr. Dela Cruz for his crackles, and has been recieving antibbiotic therapy as well as a course of IV steroids. Mr. Lopez's crackles most likely are related to chronic aspiration of food/ fluids leading to bronchospasm. He did have leukocytosis on early lab work up and has come down over the duration of his stay with antibiotic therapy. Ther is no evidence of actively acute infection. He was also placed on a nectar thick liquid diet to prevent aspiration. He will continue his recovery and PT at [facility]. -Last dose of Azithromycin to be given today -Continue oral Prednisone taper (today 30 mg, decreasing by 10 each subsequent day) -continue PT -continue nectar thick fluid diet -discharge to [facility] rehab facility #Dizziness: Patient reports that he has not had a dizzy episode since PT on 12/10. - discharge with meclizine PRN -continue PT -Reassess if symptoms return or worsen #Constipation: patient was given a suppository to aid in having a BM. -continue stool softner -continue laxative #HERB: Previous lab work indicates HERB, has improved with therapy. -continue ferrous sulfate #MERCY: Patient's reports patient snores at night with daytime somulence. -Evaluate for MERCY with outpatient sleep study -consider cpap therapy #chronic medical conditions: -continue medications as directed when discharged. DVT prophylaxis with enoxaparin Heart healthy diet & nectar thick fluids Full code
== END 2017-12-12 14:38 | DRG 202 ==
LOC: DELPENDDIS → ERH 11:00 → ERHI 13:11 → 2NA 13:11 → ENRESERV 14:39 → ENTRNSPT 15:31 → EDTRNSPT 15:38 → EDTRNSPTSTS 15:38 → 2NA 15:50 → CMPTRNSPT 16:00 → 2NA 12-09 08:06 → ENPENDDIS 12-10 10:21 → ENTRNSPT 12-10 13:47 → EDTRNSPT 12-10 13:52 → EDTRNSPTSTS 12-10 13:52 → CMPTRNSPT 12-10 14:02 → ENPENDDIS 12-12 10:55 → 2NA 12-12 14:38
PROVIDERS: Emergency Medicine; Internal Medicine
DX: J98.01 Acute bronchospasm (principal); T17.820A Food in other parts of respiratory tract causing asphyxiation, initial encounter; E87.0 Hyperosmolality and hypernatremia; F05 Delirium due to known physiological condition; I50.32 Chronic diastolic (congestive) heart failure; I11.0 Hypertensive heart disease with heart failure; J70.8 Respiratory conditions due to other specified external agents; J44.9 Chronic obstructive pulmonary disease, unspecified; E86.0 Dehydration; I69.344 Monoplegia of lower limb following cerebral infarction affecting left non-dominant side; D64.9 Anemia, unspecified; E78.5 Hyperlipidemia, unspecified; D72.829 Elevated white blood cell count, unspecified; G47.33 Obstructive sleep apnea (adult) (pediatric); X58.XXXA Exposure to other specified factors, initial encounter; N40.1 Benign prostatic hyperplasia with lower urinary tract symptoms; N39.498 Other specified urinary incontinence; K59.00 Constipation, unspecified; R42 Dizziness and giddiness; Z98.890 Other specified postprocedural states
CPT/HCPCS: 2NASP; 36415; 36592; 71046; 74230; 82436; 87040; 87070; 87804; 87804-59; 93005; 93010; 96365; 96375; 97116-GO; 97161-GP; 97530-GO; J0456; J0696; J1650; J2920; J2930; J3490; J7060; J7512